=== PATIENT | female | born 1940 | race Caucasian/White ===

== ENCOUNTER 2021-10-25 14:03 | Outpatient (REF) | payer OTHER, SELFPAY ==
--- NOTE | ~2021-10-25 | XR_ITS ---
EXAMINATION: XR LUMBOSACRAL SPINE CLINICAL INFORMATION: Low back pain with right-sided sciatica COMPARISON: Lumbar spine x-rays 07/23/2012 TECHNIQUE: Three views of the lumbosacral spine. FINDINGS: 5 nonrib-bearing lumbar vertebral bodies are visualized. Alignment is within normal limits with only minimal retrolisthesis noted of L1 on L2 and L2 on L3. Lumbar vertebral body heights are maintained. Moderate to severely decreased L5/S1 disc space height. Mild degenerative changes of the posterior elements of the lower lumbar spine. XR/XR lumbar spine 2-3V IMPRESSION: Mild to moderate degenerative changes of the lumbar spine.
== END 2021-10-25 14:04 | disposition home or self-care (01) ==
LOC: HO.XRAY 14:03
PROVIDERS: PCP Internal Medicine; Visit Provider Chiropractor
DX: M54.41 Lumbago with sciatica, right side (principal)
CPT/HCPCS: 72100

== ENCOUNTER 2023-01-24 10:21 | Outpatient (REF) | payer OTHER, SELFPAY ==
--- NOTE | ~2023-01-24 | XR_ITS ---
EXAMINATION: XR HAND, RIGHT CLINICAL INFORMATION: Pain. COMPARISON: None available. TECHNIQUE: PA, lateral, and oblique views of the right hand. FINDINGS: There is mild bony demineralization. There are mild marginal erosions of the second, third and fifth distal interphalangeal joints. There is irregularity of the ulnar styloid. No fracture or dislocation is seen. The proximal and distal carpal rows are intact. There is no unusual degenerative change of the first metacarpophalangeal joint. There is no focal soft tissue swelling, gas or foreign body. XR/XR hand RT min 3V IMPRESSION: Mild marginal erosions of the second, third and fifth distal interphalangeal joints, raising the possibility of early erosive osteoarthritis or psoriasis. Rheumatoid arthritis is considered less likely.
== END 2023-01-24 10:22 | disposition home or self-care (01) ==
LOC: HO.HOSX 10:21
PROVIDERS: Visit Provider Physician Assistant
DX: S63.591A Other specified sprain of right wrist, initial encounter (principal)
CPT/HCPCS: 73130

== ENCOUNTER 2023-09-03 06:14 | Day surgery (SDC) | payer MEDICARE, SELFPAY ==
[2023-08-28 14:23] VITALS: BMI 20.2
--- NOTE | 2023-08-31 07:49 | MHC.SHP ---
Pre-Procedural Eval Section A Date of Service: 08/31/23 The patient is an INPATIENT: No Changes since office visit: No Cold of Flu in the past 2 weeks, No New Medical Problems, No Changes in Medication and No Patient answered all questions The History & Physical has been completed within 30 days and I have reviewed it.: Yes Section B Chief Complaint: Age-related nuclear cataract, right eye Allergies: Allergies Allergy/AdvReac Type Severity Reaction Status Date / Time amoxicillin Allergy Severe Gastrointestinal Verified 08/28/23 14:23 Upset sulfamethoxazole Allergy Unknown Unknown Verified 08/28/23 14:23 [From Bactrim] trimethoprim [From Bactrim] Allergy Unknown Unknown Verified 08/28/23 14:23 Plan Diagnosis/Plan: Unchanged I have reviewed the history and physical and performed a pertinent physical examination on my patient. No changes have occurred unless specified. Time Spent With Patient Time: Total time managing care of this patient today ____ minutes.
[2023-09-03] MEDS: Tetracaine HCl/PF 0.5% Oph Sol 4 ML DROPS 1 DROP EYE-RIGHT (06:28)
[2023-09-03] MEDS: Cyclopentolate 1 % Ophth Sol 2 ML DRPBTL 1 DROP EYE-RIGHT ×3 (06:28→06:37)
[2023-09-03] MEDS: Tropicamide 1 % Ophth Sol 3 ML BTL 1 DROP EYE-RIGHT ×3 (06:28→06:37)
[2023-09-03] MEDS: Ketorolac Tromethamine 0.5% Op 5 ML DROPS 1 DROP EYE-RIGHT ×3 (06:29→06:37)
[2023-09-03] MEDS: Phenylephrine HCL 2.5% Oph SoL 2 ML BOTTLE 1 DROP EYE-RIGHT ×3 (06:29→06:37)
[2023-09-03 06:40] VITALS: BP 176/62; PULSE 63; RESP 18; TEMP 36.7; O2SAT 100
[2023-09-03] MEDS: Lactated Ringers 500 ML 50 ML IV (06:51)
--- NOTE | 2023-09-03 07:21 | HO.ANESPROP2 ---
[facility] Active Problems Active Problems: All Active Problems (Updated 08/30/23 @ 09:03 by Jaja Matos RN) TFCC (triangular fibrocartilage complex) tear (Acute) Past Medical History Medical History Sciatic pain Hypothyroid IBS (irritable bowel syndrome) GERD (gastroesophageal reflux disease) Hiatal hernia Cervical spondylosis HTN (hypertension) Anxiety Anogenital lichen sclerosus Surgical History Surgical History History of esophagogastroduodenoscopy (EGD) Hx of colonoscopy History of Problems with Anesthesia: No Social History Social History Patient Tobacco Use Status: Never used Tobacco Are you DNR?: No Advance Directives: No Advance Directives Information Provided: Yes Nutrition Risks: No Nutritional Risk Current occupational status: unemployed Current occupation: right handed Meds Allergies Allergy/AdvReac Type Severity Reaction Status Date / Time amoxicillin Allergy Severe Gastrointestinal Verified 09/03/23 06:44 Upset sulfamethoxazole Allergy Unknown Unknown Verified 09/03/23 06:44 [From Bactrim] trimethoprim [From Bactrim] Allergy Unknown Unknown Verified 09/03/23 06:44 Active Medications: Current Medications Lactated Ringer's (Lr) 500 mls @ 50 mls/hr IV .Q10H ON LICENSE OF [facility] Stop: 09/03/23 16:59 Last Admin: 09/03/23 06:51 Dose: 50 mls/hr Lactated Ringer's (Lr) 500 mls @ 50 mls/hr IVCONT .Q10H ON LICENSE OF [facility] Povidone Iodine (Povidone Iodine 5 % Ophth Soln 30 Ml Bottle) 1 appl EYE-RIGHT PREOP PRN PRN Reason: Pre-Op Surgical Implant Prophy Home Medications Medication Instructions Recorded Confirmed Last Taken Type citalopram 40 mg tablet 40 mg PO DAILY 01/24/23 08/28/23 Unknown History ascorbic acid (vitamin C) 1,000 mg 1,000 mg PO DAILY 08/28/23 08/28/23 Unknown History tablet (Vitamin C) cholecalciferol (vitamin D3) 50 50 mcg PO DAILY 08/28/23 08/28/23 Unknown History mcg (2,000 unit) capsule (Vitamin D3) folic acid 1 mg tablet 1 mg PO DAILY 08/28/23 08/28/23 Unknown History Exam Exam Date and Time: September 03, 2023 0721 Height,Weight and Vital Signs: Height 5 ft 0.24 in Weight 47.4 kg Last Vital Signs Temp 98.0 F 09/03/23 06:40 Pulse 63 09/03/23 06:40 Resp 18 09/03/23 06:40 BP 176/62 H 09/03/23 06:40 Pulse Ox 100 09/03/23 06:40 O2 Del Method Room Air 09/03/23 06:40 Airway Mallampati Class: II TM Dist: >3cm Neck ROM: Full Loose/Missing/Broken Teeth: No Heart: RRR Lungs: CTA Assessment and Plan Assessment Anesthesia Assessment: Anesthesia Plan Discussed and Chart Reviewed Final Anesthetic Review History of Problems with Anesthesia: No NPO: Yes ASA Class: II Final Preanesthetic Review: Meds/Allgs Chart Reviewed, Consent Obtained/Reviewed and Anes Risks/Benef Reviewed Patient Risk: Low Procedure Risk: Low Anesthetic Plan Anesthetic Plan: MAC: Disposition: Standard PACU
--- NOTE | 2023-09-03 07:56 | HO.PNOPHT ---
Ophthalmology Procedure Procedure Date of Service: 09/03/23 Ophthalmology Viscoelastic: Healon Duet Dual Pack Pro Ophthalmology Lenses: TECNIS [id number] (21.5) Procedure Notes: PREOPERATIVE DIAGNOSIS: Decreased visual acuity right eye secondary to cataract POSTOPERATIVE DIAGNOSIS: Same PROCEDURE: Right cataract extraction with intraocular lens insertion SURGEON: Greg Lr M.D. ANESTHESIA: Topical/MAC ESTIMATED BLOOD LOSS: None COMPLICATIONS: None After obtaining informed consent, the patient was brought to the operating room suite and placed in the supine position. After adequate sedation per anesthesia, topical drops of Tetracaine were given to the right eye. The eye was then prepped and draped in the usual sterile fashion. The operating room microscope was then positioned over the operative eye and a lid speculum placed. A paracentesis was created. Viscoelastic was then instilled into the anterior chamber. A three plane incision was then created temporally, utilizing a 2.85 mm keratome. Capsulotomy forceps were then utilized to create a circular tear capsulotomy. Hydrodissection and hydrodelineation were carried out until adequate mobilization of the nucleus occurred. Phacoemulsification was then utilized to remove the dense central nucleus followed by removal of the cortical material utilizing the automated aspiration irrigation unit. Viscoelastic was instilled into the posterior capsular bag followed by placement of a posterior chamber intraocular lens without difficulty. The residual Viscoelastic was then removed utilizing the automated IA machine. The wound was checked and found to be watertight. The patient tolerated the procedure well and the lid speculum was removed. Intracameral injection of Vigamox 0.1 mL followed by a subtenon injection of Kenalog-40 0.2 mL were administered. The patient will be seen in the a.m.
[2023-09-03 08:20] VITALS: BP 161/52; PULSE 55; RESP 18; TEMP 36.7; O2SAT 97
== END 2023-09-03 08:31 | disposition home or self-care (01) ==
PROVIDERS: PCP Internal Medicine; Visit Provider Ophthalmology
PROC: (CPT 66985; principal; 2023-09-03 08:00)
DX: H25.11 Age-related nuclear cataract, right eye (principal); H54.7 Unspecified visual loss; H49.00 Third [oculomotor] nerve palsy, unspecified eye; D23.112 Other benign neoplasm of skin of right lower eyelid, including canthus; H04.121 Dry eye syndrome of right lacrimal gland; H20.011 Primary iridocyclitis, right eye; H50.52 Exophoria; I10 Essential (primary) hypertension; J30.9 Allergic rhinitis, unspecified; F41.9 Anxiety disorder, unspecified; Z79.899 Other long term (current) drug therapy; Z88.1 Allergy status to other antibiotic agents
CPT/HCPCS: 66984; J1920; J3010; J3301; V2632

== ENCOUNTER 2023-12-03 10:58 | Outpatient (REF) | payer MEDICARE, SELFPAY ==
[2023-12-03 12:00] VITALS: BP 195/78; PULSE 69; RESP 16; TEMP 36.9; O2SAT 100
[2023-12-03 13:47] VITALS: BMI 21.5
== END 2023-12-03 10:59 | disposition home or self-care (01) ==
LOC: HO.MS 10:58
PROVIDERS: PCP Internal Medicine; Visit Provider Ophthalmology
DX: L98.9 Disorder of the skin and subcutaneous tissue, unspecified (principal); Z53.9 Procedure and treatment not carried out, unspecified reason

== ENCOUNTER 2023-12-17 10:28 | Outpatient (REF) | payer MEDICARE, SELFPAY ==
[2023-12-17 14:10] VITALS: BP 196/95; PULSE 65; RESP 18; TEMP 36.4; O2SAT 100; BMI 20.3
== END 2023-12-17 10:29 | disposition home or self-care (01) ==
LOC: HO.MS 10:28
PROVIDERS: PCP Internal Medicine; Visit Provider Ophthalmology
PROC: (CPT 67840; principal; 2023-12-17 13:50)
DX: D23.112 Other benign neoplasm of skin of right lower eyelid, including canthus (principal)
CPT/HCPCS: 67840; 88304; 88305

== ENCOUNTER 2024-04-30 11:00 | Day surgery (SDC) | payer MEDICARE, SELFPAY ==
[2024-04-28 09:44] VITALS: BMI 19.9
--- NOTE | 2024-04-29 10:14 | HO.ANESPROP2 ---
Documented by User: Heather Owusu NP 04/29/24 10:16 HPI - Anesthesia Eval Consult details Narrative: 83yo F for Bilateral Lateral Rectus Eye Muscle Recession Medically optimized per [facility] Active Problems Active Problems: All Active Problems TFCC (triangular fibrocartilage complex) tear (Acute) Past Medical History Medical History Sciatic pain Hypothyroid IBS (irritable bowel syndrome) GERD (gastroesophageal reflux disease) Hiatal hernia Cervical spondylosis HTN (hypertension) Anxiety Anogenital lichen sclerosus Surgical History Surgical History Hx of cataract surgery History of esophagogastroduodenoscopy (EGD) Hx of colonoscopy History of Problems with Anesthesia: No Social History Social History Patient Tobacco Use Status: Never used Tobacco Use of substances other than those prescribed or required for medical reasons: No Are you DNR?: No Advance Directives: No Advance Directives Information Provided: Yes Current occupational status: unemployed Current occupation: right handed Meds Allergies Allergy/AdvReac Type Severity Reaction Status Date / Time No Known Allergies Allergy Verified 04/30/24 13:33 Home Medications ?Medication ?Instructions ?Recorded ?Confirmed ?Last Taken ?Type citalopram 40 mg tablet 40 mg PO DAILY 01/24/23 04/30/24 Unknown History ascorbic acid (vitamin C) 1,000 mg 1,000 mg PO DAILY 08/28/23 04/30/24 Unknown History tablet (Vitamin C) cholecalciferol (vitamin D3) 50 50 mcg PO DAILY 08/28/23 04/30/24 Unknown History mcg (2,000 unit) capsule (Vitamin D3) folic acid 1 mg tablet 1 mg PO DAILY 08/28/23 04/30/24 Unknown History amlodipine 5 mg tablet 5 mg PO BEDTIME 04/30/24 04/30/24 Unknown History jmtcgvyc-kmrb-dxqu 8 mg-folic 400 1 tab PO DAILY 04/30/24 04/30/24 Unknown History mcg-K 50 mcg-lutein 300 mcg tablet (Centrum Silver Women) Exam Height,Weight and Vital Signs: Height 5 ft 0.24 in Weight 46.5 kg Assessment and Plan Assessment Anesthesia Assessment: Chart Reviewed Final Anesthetic Review History of Problems with Anesthesia: No Documented by User: Talia Esteban MD 04/30/24 14:30 [facility] Past Medical History Medical History Sciatic pain Hypothyroid IBS (irritable bowel syndrome) GERD (gastroesophageal reflux disease) Hiatal hernia Cervical spondylosis HTN (hypertension) Anxiety Anogenital lichen sclerosus Family History Family history of problems with anesthesia: No Surgical History Surgical History Hx of cataract surgery History of esophagogastroduodenoscopy (EGD) Hx of colonoscopy Social History Social History Patient Tobacco Use Status: Never used Tobacco Use of substances other than those prescribed or required for medical reasons: No Are you DNR?: No Advance Directives: No Advance Directives Information Provided: Yes Current occupational status: unemployed Current occupation: right handed Meds Allergies Allergy/AdvReac Type Severity Reaction Status Date / Time No Known Allergies Allergy Verified 04/30/24 13:33 Home Medications ?Medication ?Instructions ?Recorded ?Confirmed ?Last Taken ?Type citalopram 40 mg tablet 40 mg PO DAILY 01/24/23 04/30/24 Unknown History ascorbic acid (vitamin C) 1,000 mg 1,000 mg PO DAILY 08/28/23 04/30/24 Unknown History tablet (Vitamin C) cholecalciferol (vitamin D3) 50 50 mcg PO DAILY 08/28/23 04/30/24 Unknown History mcg (2,000 unit) capsule (Vitamin D3) folic acid 1 mg tablet 1 mg PO DAILY 08/28/23 04/30/24 Unknown History amlodipine 5 mg tablet 5 mg PO BEDTIME 04/30/24 04/30/24 Unknown History sbtxwtic-ajni-fegi 8 mg-folic 400 1 tab PO DAILY 04/30/24 04/30/24 Unknown History mcg-K 50 mcg-lutein 300 mcg tablet (Centrum Silver Women) Exam Airway Mallampati Class: II TM Dist: >3cm Neck ROM: Full Heart: rrr Lungs: cta Assessment and Plan Assessment Anesthesia Assessment: Anesthesia Plan Discussed Final Anesthetic Review Family History of Problems with Anesthesia: No NPO: Yes ASA Class: III Final Preanesthetic Review: No Changes in Pt Med Stat, Meds/Allgs Chart Reviewed, Consent Obtained/Reviewed and Anes Risks/Benef Reviewed Patient Risk: Intermediate Procedure Risk: Low Anesthetic Plan Anesthetic Plan: GA (pt complains of chest heaviness and disorienentation, blood sugar and EKG ORDERED. rythm strip normal.) Disposition: Standard PACU
[2024-04-30] VITALS (7 sets, daily range): BP systolic 132–179; BP diastolic 50–79; PULSE 77–97; RESP 16–17; TEMP 36.7–36.9; O2SAT 97–100; BMI 19.4
--- OUTSIDE RECORDS SUMMARY | 2024-04-30 11:02 | XMS_ITS | Continuity of Care Document ---
Author Organization [facility] [place], [facility] Address [address] [place] [address]- Care Team Providers Care Cafeteria Counter Attendant Name Role Phone Lobo Dorsey MD Primary Care Physician Encounter [facility] [place] Date(s): 09/29/20 - 10/06/20 [facility] [place] Adult [address] [place] [address]- Encounter Diagnosis Esophageal reflux(Discharge Diagnosis) - 09/29/20 Attending Physician: Lobo Dorsey MD Allergies, Adverse Reactions, Alerts Substance Reaction Severity Status amoxicillin SEVERE GI UPSET Active Bactrim Active Immunizations Given and Recorded Vaccine Date Status Refusal Reason Influenza Virus Vaccine (oldterm) 06/30/20 Recorde d Influenza Virus Vaccine (oldterm) 07/30/19 Recorde d Influenza Virus Vaccine (oldterm) 1 08/08/06 Given Zoster Vaccine Live 09/11/19 Recorded Zoster Vaccine Live 05/26/09 Given zoster vaccine, inactivated 07/23/19 Recorded zoster vaccine, inactivated 07/22/19 Recorded influenza virus vaccine, inactivated 08/14/18 Give n influenza virus vaccine, inactivated 08/01/17 Give n influenza virus vaccine, inactivated 08/11/16 Give n influenza virus vaccine, inactivated 2, 3 07/26/15 Recorded influenza virus vaccine, inactivated 4 08/22/14 Re corded influenza virus vaccine, inactivated 08/19/13 Give n pneumococcal 13-valent vaccine 05/18/15 Given tetanus/diphtheria/pertussis, acel(Tdap) 5 05/20/13 Given Fluzone (oldterm) 07/31/12 Given FluLaval (oldterm) 08/29/11 Given FluLaval (oldterm) 6 08/03/10 Given Tetanus Toxoid 12/29/09 Given influ virus vac, H1N1, inactive(oldterm) 7 11/30/09 Given Influenza Inactive (IM) (oldterm) 09/02/08 Given Influenza Inactive (IM) (oldterm) 08/08/07 Given Pneumococcal Vaccine (oldterm) 10/22/04 Given Tetanus Toxoid Vaccine (oldterm) 09/21/00 Given 1Admin Note: GIVEN IN [facility]IC [facility] 2Location History: [facility] 3Result Comment: [07/28/2015] HIGH DOSE 4Location History: [address] [place] 5Result Comment: [05/20/2013] orderred by Dhara nieto NP 6Admin Note: [employer] [facility] SALTYALEYDA 7Admin Note: per pt rcvd elsewhere Medications Carafate 1 gm oral tablet 1 Gm, 1, tablet, By Mouth, 4 times a day, # 120 tablet, Refills 11, Tot. Refills 11, Maintenance, 09/30/20 9:28:00 EST, Route to Pharmacy Electronically, [facility] #[id number], Partial fill upon patient request if the prescription is for a sched... Start Date: 09/30/20 Status: Ordered cetirizine 10 mg oral tablet 1 tablet = 10 mg, By Mouth, Daily, # 30 tablet, 0 Refills, Maintenance, 02/16/20 14:17:00 EDT, Tablet Start Date: 02/16/20 Status: Ordered citalopram 20 mg oral tablet 40 mg, 2, tablet, By Mouth, Daily, # 180 tablet, Refills 0, Tot. Refills 0, Soft Stop, 08/09/20 7:21:00 EDT, Route to Pharmacy Electronically, [facility] #36, 153.5, cm, 02/16/20 13:58:00 EDT, Height Start Date: 08/09/20 Stop Date: 11/07/20 Status: Ordered Folic Acid Daily, 0 Refills, Maintenance Start Date: 05/20/13 Status: Ordered ipratropium nasal 21 mcg/inh spray 2 sprays, Nares, Both, 3 times a day, # 30 mL, 11 Refills, Maintenance, 09/29/20 16:46:00 EST, [place], [facility] #[id number], Partial fill upon patient request if the prescription is for a schedule II opioid drug., 2 sprays Nares, Both 3 times a... Start Date: 09/29/20 Status: Ordered Singulair 5 mg oral tablet, chewable 5 mg, 1, tablet, Chew, Daily in PM, # 90 tablet, Refills 1, Tot. Refills 1, Maintenance, 08/26/20 14:54:00 EST, Print Requisition Start Date: 08/26/20 Status: Ordered Vitamin B-6 Tablet Daily, Maintenance, 05/20/13 8:34:54 Start Date: 05/20/13 Status: Ordered Vitamin B12 1000 mcg oral tablet 1 tablet = 1,000 mcg, By Mouth, Daily, # 30 tablet, 0 Refills, Maintenance, Tablet Start Date: 05/20/13 Status: Ordered Vitamin C 1000 mg oral tablet 1 tablet = 1,000 mg, By Mouth, Daily, # 30 tablet, 0 Refills, Maintenance, Tablet Start Date: 05/20/13 Status: Ordered Vitamin D3 2000 intl units oral tablet 1 tablet = 2,000 International_Units, By Mouth, Daily, 0 Refills, Maintenance, 05/18/15 9:34:02 Start Date: 05/18/15 Status: Ordered Problem List Condition Effective Dates Status Health Status Inform ant Allergic rhinitis(Confirmed) Active Anogenital lichen sclerosus(Confirmed) Active Anxiety(Confirmed) Active Atrophic vaginitis(Confirmed) Active Atrophic vaginitis(Confirmed) Active Benign essential hypertension(Confirmed) Active Cervical spondylosis(Confirmed) Active Colonoscopy(Confirmed) 1, 2 Active Constipation(Confirmed) Active Esophagogastroduodenoscopy [ egd] with Closed Biopsy(Confirmed) 3 Active Esophageal reflux(Confirmed) Active Headache(Confirmed) Active Esophageal hiatal hernia(Confirmed) 4 Active Irritable Bowel Syndrome(Confirmed) 5 Active 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 Gauthier Diagnosis Diagnosis Type Effective Dates Health Status Clinical Service Informant Esophageal reflux Discharge Diagnosis 09/29/20 Vital Signs Most recent to oldest [Reference Range]: 1 Height 153.5 cm (09/29/20 3:00 PM) Mode of Delivery (Oxygen) Room air (09/29/20 3:00 PM) Social History Social History Type Response Smoking Status Never smoker entered on: 11/18/13 Sex
--- OUTSIDE RECORDS SUMMARY | 2024-04-30 11:02 | XMS_ITS | Continuity of Care Document ---
Author Organization [facility] [place] [facility] Address [address] [place] [address]- Care Team Providers Care Senior Tax Manager Name Role Phone Lobo Dorsey MD Primary Care Physician Encounter [facility] [place] Date(s): 02/25/24 - 04/09/24 [facility] Adult [address] [place] [address]- Attending Physician: Lobo Dorsey MD Allergies, Adverse Reactions, Alerts Substance Reaction Severity Status amoxicillin SEVERE GI UPSET Active Bactrim Active Immunizations Given and Recorded Vaccine Date Status Refusal Reason influenza virus vaccine, inactivated 07/01/23 Manohar rded influenza virus vaccine, inactivated 07/28/22 Give n influenza virus vaccine, inactivated 08/04/21 Give n influenza virus vaccine, inactivated 06/20/20 Manohar rded influenza virus vaccine, inactivated 08/14/18 Give n influenza virus vaccine, inactivated 08/01/17 Give n influenza virus vaccine, inactivated 08/11/16 Give n influenza virus vaccine, inactivated 1, 2 07/26/15 Recorded influenza virus vaccine, inactivated 3 08/22/14 Re corded influenza virus vaccine, inactivated 08/13/14 Manohar rded influenza virus vaccine, inactivated 08/19/13 Give n influenza virus vaccine, inactivated 08/11/13 Manohar rded influenza virus vaccine, inactivated 08/02/10 Manohar rded tetanus-diphtheria toxoids (Td) 01/26/23 Given tetanus-diphtheria toxoids (Td) 12/29/09 Recorded pneumococcal 20-valent conjugate vaccine 01/26/23 Given SARS-CoV-2 (COVID-19) mRNA BNT-162b2 vac 08/17/21 Recorded SARS-CoV-2 (COVID-19) mRNA BNT-162b2 vac 12/13/20 Recorded SARS-CoV-2 (COVID-19) mRNA BNT-162b2 vac 11/22/20 Recorded Influenza Virus Vaccine (oldterm) 06/30/20 Recorde d Influenza Virus Vaccine (oldterm) 07/30/19 Recorde d Influenza Virus Vaccine (oldterm) 4 08/08/06 Given Zoster Vaccine Live 09/11/19 Recorded Zoster Vaccine Live 05/26/09 Given zoster vaccine, inactivated 07/23/19 Recorded zoster vaccine, inactivated 07/22/19 Recorded zoster vaccine, inactivated 07/11/19 Recorded pneumococcal 13-valent vaccine 05/18/15 Given tetanus/diphtheria/pertussis, acel(Tdap) 5 05/20/13 Given Fluzone (oldterm) 07/31/12 Given FluLaval (oldterm) 08/29/11 Given FluLaval (oldterm) 6 08/03/10 Given Tetanus Toxoid 12/29/09 Given influ virus vac, H1N1, inactive(oldterm) 7 11/30/09 Given Influenza Inactive (IM) (oldterm) 09/02/08 Given Influenza Inactive (IM) (oldterm) 08/08/07 Given Pneumococcal Vaccine (oldterm) 10/22/04 Given Tetanus Toxoid Vaccine (oldterm) 09/21/00 Given 1Location History: [facility] 2Result Comment: [07/28/2015] HIGH DOSE 3Location History: [address] [place] 4Admin Note: GIVEN IN CLINIC [facility]AM 5Result Comment: [05/20/2013] orderred by Dhara nieto NP 6Admin Note: [employer] [facility] MICHELLE 7Admin Note: per pt rcvd elsewhere Medications amLODIPine 5 mg oral tablet 1 tablet = 5 mg, By Mouth, Daily, # 90 tablet, 0 Refills, Maintenance, 02/29/24 11:28:00 EDT, Tablet, [facility] #[facility], Partial fill upon patient request if the prescription is for a schedule II opioid drug., 153, cm, 02/25/24 14:21:00 EDT, He... Start Date: 02/29/24 Status: Ordered benazepril 10 mg oral tablet 1 tablet = 10 mg, By Mouth, Daily, # 90 tablet, 0 Refills, Maintenance, 02/29/24 11:29:00 EDT, Tablet, [facility] #[facility], Partial fill upon patient request if the prescription is for a schedule II opioid drug., 153, cm, 02/25/24 14:21:00 EDT, H... Start Date: 02/29/24 Status: Ordered citalopram 40 mg oral tablet 1 tablet, By Mouth, Daily, # 90 tablet, 3 Refills, Maintenance, 08/06/23 13:14:00 EDT, [facility] #[facility], 153, cm, 08/06/23 13:00:00 EDT, Height Start Date: 08/06/23 Status: Ordered Folic Acid Daily, 0 Refills, Maintenance Start Date: 05/20/13 Status: Ordered Vitamin C 1000 mg oral tablet 1 tablet = 1,000 mg, By Mouth, Daily, # 30 tablet, 0 Refills, Maintenance, Tablet Start Date: 05/20/13 Status: Ordered Vitamin D3 2000 intl units oral tablet 1 tablet = 2,000 International_Units, By Mouth, Daily, 0 Refills, Maintenance, 05/18/15 9:34:02 Start Date: 05/18/15 Status: Ordered Problem List Condition Confirmation Course Effective Dates Status Health Status Informant Allergic rhinitis Confirmed Active Anogenital lichen sclerosus Confirmed Active Anxiety Confirmed Active Atrophic vaginitis Confirmed Active Benign essential hypertension Confirmed Active Cervical spondylosis Confirmed Active Chest pain Confirmed Active Colonoscopy 1, 2 Confirmed Active Constipation Confirmed Active Diplopia Confirmed Active Dizziness Confirmed Active Esophagogastroduodenoscopy [egd] with Closed Biopsy 3 Confirmed Active Esophageal reflux Confirmed Active Headache Confirmed Active Esophageal hiatal hernia 4 Confirmed Active MCI (mild cognitive impairment) Confirmed Active Irritable Bowel Syndrome 5 Confirmed Active Lichen sclerosus et atrophicus of the vulva Confirmed Active Schatzki's ring 6 Confirmed Active Ptosis, right Confirmed Active Recurrent major depressive episodes Confirmed Active Rhinitis Confirmed Active Right sided sciatica Confirmed Active Sensorineural hearing loss o f both ears 7 Confirmed Active Subclinical hypothyroidism Confirmed Active 1colo 2011 nl, no repeat needed with age 2colo 1999, repeat 2009 3egd 1999 negative barretts 4EGD 2014 5constipation 2017 7per hearing test done with Dr. Gauthier Social History Social History Type Response Smoking Status Never (less than 100 in lifetime) entered on: 08/28/23 Sex Patient Care team information Care Team Personnel Name: Lobo Dorsey MD Position: S Physician - Primary Care Member Role: PCP Address: Address: [address] [facility] [place] [address]- Care Team Related Persons Name: JORGE BRISENO Address: home [address] [facility] [place] [id number]
--- OUTSIDE RECORDS SUMMARY | 2024-04-30 11:02 | XMS_ITS | Continuity of Care Document ---
Author Organization [facility] Silver[facility] lt Address [address] [place] [address]- Care Team Providers Care Boat Washer Name Role Phone Lobo Dorsey MD Primary Care Physician [phone] [place] [facility] [place](s): 08/02/21 - 09/07/21 [facility] Adult [address] [place] [address]- Attending Physician: Lobo Dorsey MD Allergies, Adverse Reactions, Alerts Substance Reaction Severity Status amoxicillin SEVERE GI UPSET Active Bactrim Active Immunizations Given and Recorded Vaccine Date Status Refusal Reason influenza virus vaccine, inactivated 08/04/21 Give n influenza virus vaccine, inactivated 08/14/18 Give n influenza virus vaccine, inactivated 08/01/17 Give n influenza virus vaccine, inactivated 08/11/16 Give n influenza virus vaccine, inactivated 1, 2 07/26/15 Recorded influenza virus vaccine, inactivated 3 08/22/14 Re corded influenza virus vaccine, inactivated 08/19/13 Give n SARS-CoV-2 (COVID-19) mRNA BNT-162b2 vac 12/13/20 Recorded SARS-CoV-2 (COVID-19) mRNA BNT-162b2 vac 11/22/20 Recorded Influenza Virus Vaccine (oldterm) 06/30/20 Recorde d Influenza Virus Vaccine (oldterm) 07/30/19 Recorde d Influenza Virus Vaccine (oldterm) 4 08/08/06 Given Zoster Vaccine Live 09/11/19 Recorded Zoster Vaccine Live 05/26/09 Given zoster vaccine, inactivated 07/23/19 Recorded zoster vaccine, inactivated 07/22/19 Recorded pneumococcal 13-valent vaccine 05/18/15 Given tetanus/diphtheria/pertussis, [...] Comment: [07/28/2015] HIGH DOSE 3Location History: [address] [place] 4Admin Note: GIVEN IN CLINIC SHAM 5Result Comment: [05/20/2013] orderred by Dhara nieto NP 6Admin Note: [employer] [facility] MICHELLE 7Admin Note: per pt rcvd elsewhere Medications Carafate 1 gm oral tablet 1 Gm, 1, tablet, By Mouth, 4 times a day, # 120 tablet, Refills 11, Tot. Refills 11, Maintenance, 09/30/20 9:28:00 EST, Route to Pharmacy Electronically, [facility] #[id number], Partial fill upon patient request if the prescription is for a sched... Start Date: 09/30/20 Status: Ordered citalopram 40 mg oral tablet 1 tablet, By Mouth, Daily, # 90 tablet, 1 Refills, [facility] #[id number], 153.5, cm, 04/14/2114:03:00 EDT, Height Start Date: 07/08/21 Status: Ordered Folic Acid Daily, 0 Refills, Maintenance Start Date: 05/20/13 Status: Ordered LORazepam 0.5 mg oral tablet 0.5 tablet = 0.25 mg, By Mouth, 3 times a day, PRN for anxiety, # 30 tablet, 0 Refills, Maintenance, 08/04/21 12:11:00 EDT, Tablet, [facility] #[id number], Partial fill upon patient request if the prescription is for a schedule II opioid drug., 1... Start Date: 08/04/21 Status: Ordered Vitamin B-6 Tablet Daily, Maintenance, [...] 05/18/15 9:34:02 Start Date: 05/18/15 Status: Ordered ZyrTEC 10 mg oral tablet 1 tablet = 10 mg, By Mouth, Daily, # 30 tablet, 5 Refills, Maintenance, 04/14/21 14:31:00 EDT, [facility], [id number], Partial fill upon patient request if the prescription is for a schedule II opioid drug., 153.5, cm, 04/14/21 14:03:00 E... Start Date: 04/14/21 Status: Ordered Problem List Condition Effective Dates [...] the vulva(Confirmed) Active Schatzki's ring(Confirmed) 6 Active Ptosis, right(Confirmed) Active Depression, major, recurrent , moderate(Confirmed) Active Rhinitis(Confirmed) Active 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 Gauthier Social History Social History Type Response Smoking Status Never smoker entered on: 11/18/13 Sex
--- OUTSIDE RECORDS SUMMARY | 2024-04-30 11:02 | XMS_ITS | Continuity of Care Document ---
Author Organization [facility] Kiel [facility] lt Address [address] [place] [address]- Care Team Providers Care Day Care Worker Name Role Phone Lobo Dorsey MD Primary Care Physician [phone] Encounter [facility] Date(s): 08/06/23 - 08/13/23 [facility] Adult [address] [place] [address]- Encounter Diagnosis Anxiety(Discharge Diagnosis) - 08/06/23 Attending Physician: Lobo Dorsey MD Allergies, Adverse [...] HIGH DOSE 3Location History: [address] [place] 4Admin Note: GIVEN IN CLINIC SHAM 5Result Comment: [05/20/2013] orderred by Dhara nieto NP 6Admin Note: [facility] MICHELLE 7Admin Note: per pt rcvd elsewhere Medications aspirin 81 mg oral delayed release tablet 81 mg, 1, tablet, By Mouth, Daily, Refills 0, Maintenance, 01/26/23 11:39:00 EDT, Partial fill uponpatient request if the prescription is for a schedule II opioid drug. Start Date: 01/26/23 Status: Ordered citalopram 40 mg oral tablet 1 tablet, By Mouth, Daily, # 90 tablet, 3 Refills, Maintenance, 08/06/23 13:14:00 EDT, [facility] #[facility], 153, cm, 08/06/23 13:00:00 EDT, Height Start Date: 08/06/23 Status: Ordered Clobetasol (Eqv-Temovate) 0.05% topical cream See Instructions, apply a thin film twice daily, # 15 Gm, 0 Refills, Maintenance, 08/06/23 13:18:00EDT, [facility] #[facility], Partial fill upon patient request if the prescription is for a schedule II opioid drug., apply a thin film twice daily,... Start Date: 08/06/23 Status: Ordered Folic Acid Daily, 0 Refills, Maintenance Start Date: 05/20/13 Status: Ordered Vitamin B-6 Tablet Daily, Maintenance, 05/20/13 8:34:54 Start Date: 05/20/13 Status: Ordered Vitamin C [...] Anxiety Confirmed Active Atrophic vaginitis Confirmed Active Cervical spondylosis Confirmed Active Chest pain Confirmed Active Colonoscopy 1, 2 Confirmed Active Constipation Confirmed Active Dizziness Confirmed Active Esophagogastroduodenoscopy [egd] [...] Diagnosis Diagnosis Type Effective Dates Health Status Clini laurie Service Informant Anxiety Discharge Diagnosis 08/06/23 Vital Signs Most recent to oldest [Reference Range]: 1 Height 153 cm (08/06/23 1:00 PM) Weight 48.5 kg (08/06/23 1:00 PM) Oxygen Saturation [94-100 %] 100 % (08/06/23 1:00 PM) Pulse Rate [55-90 bpm] 70 bpm (08/06/23 1:00 PM) Body Mass Index [18.5-24.99 kg/m2] 20.72 kg/m2 (08/06/23 1:00 PM) Blood Pressure [90-138/55-84 mm Hg] 132/ 70mm Hg (08/06/23 1:00 PM) Mode of Delivery (Oxygen) Room air (08/06/23 1:00 PM) Blood pressure sites Arm, left (08/06/23 1:00 PM) Weight Obtained Via Standing scale (08/06/23 1:00 PM) Social History Social History Type Response Smoking Status Never smoker entered on: 11/18/13 Sex Patient Care team information Care Team Personnel Name: Lobo Dorsey MD Position: S Physician - Primary Care Member Role: PCP Address: Address: [address] [place] [address]- Care Team Related Persons Name: JORGE BRISENO Address: [address] [place] [address] [facility] [place] [address]
--- OUTSIDE RECORDS SUMMARY | 2024-04-30 11:02 | XMS_ITS | Continuity of Care Document ---
Author Organization [facility] Address [address] [place] [address]- Care Team Providers Care Freelance Art Director Name Role Phone Lobo Dorsey MD Primary Care Physician [facility]counter [facility] Date(s): 10/23/19 - 11/02/19 [facility] Adult [address] [place] [address]- [facility] Attending Physician: Admtr, Ar8 Allergies, Adverse Reactions, Alerts Substance Reaction Severity Status amoxicillin SEVERE GI UPSET Active Bactrim Active Immunizations Given and Recorded Vaccine Date Status Refusal Reason Zoster Vaccine Live 09/11/19 Recorded Zoster Vaccine Live 05/26/09 Given Influenza Virus Vaccine (oldterm) 07/30/19 Recorde d Influenza Virus Vaccine (oldterm) 1 08/08/06 Given zoster vaccine, inactivated 07/23/19 Recorded zoster [...] 5Result Comment: [05/20/2013] orderred by Dhara nieto DEMOLITION CRANE OPERATOR 6Admin Note: [employer] [facility] MICHELLE 7Admin Note: per pt rcvd elsewhere Medications citalopram 20 mg oral tablet See Instructions, TAKE TWO TABLETS BY MOUTH ONCE DAILY, # 180 tablet, Refills 1, Tot. Refills 1, Soft Stop, 09/15/19 14:30:31 EST, Instructions Replace Required Details, Print Requisition Start Date: 09/15/19 Status: Ordered Folic Acid Daily, 0 Refills, Maintenance Start Date: 05/20/13 Status: Ordered Pepcid 20 mg oral tablet 1 tablet = 20 mg, By Mouth, 2 times a day, # 180 tablet, 0 Refills, Maintenance, 08/14/19 12:13:14 EDT, Tablet Start Date: 08/14/19 Status: Ordered Vitamin B-6 Tablet Daily, Maintenance, [...] Effective Dates Status Health Status Inform ant Anogenital lichen sclerosus(Confirmed) Active Anxiety(Confirmed) Active Atrophic [...] 7per hearing test done with Dr. Gauthier Procedures Procedure Date Related Diagnosis Body Site Status Endoscopy 10/02/18 Completed Social History Social History Type Response Smoking Status Never smoker entered on: 11/18/13 Sex
--- OUTSIDE RECORDS SUMMARY | 2024-04-30 11:02 | XMS_ITS | Continuity of Care Document ---
Author Organization [facility] Address [address] [place] [address]- Care Team Providers Care Software Designer Name Role Phone Lobo Dorsey MD Primary Care Physician Encounter [facility] [place] Date(s): 07/28/22 - 08/04/22 [facility] Adult [address] [place] [address]- Encounter Diagnosis Allergic rhinitis(Discharge Diagnosis) - 07/28/22 Anxiety(Discharge Diagnosis) - 07/28/22 Major depression, recurrent, moderate(Discharge Diagnosis) - 07/28/22 Attending Physician: Lobo Dorsey MD Allergies, Adverse Reactions, Alerts Substance Reaction Severity Status amoxicillin SEVERE GI UPSET Active Bactrim Active Immunizations Given and Recorded Vaccine Date Status Refusal Reason influenza virus vaccine, inactivated 07/28/22 Give n [...] influenza virus vaccine, inactivated 08/02/10 Manohar rded SARS-CoV-2 (COVID-19) mRNA BNT-162b2 vac 08/17/21 Recorded SARS-CoV-2 (COVID-19) mRNA BNT-162b2 vac 12/13/20 Recorded SARS-CoV-2 (COVID-19) mRNA BNT-162b2 vac 2/1/21 Recorded Influenza Virus Vaccine (oldterm) 06/30/20 Recorde [...] 6 08/03/10 Given Tetanus Toxoid 12/29/09 Given tetanus-diphtheria toxoids (Td) 12/29/09 Recorded influ virus vac, H1N1, inactive(oldterm) 7 11/30/09 Given Influenza Inactive (IM) (oldterm) 09/02/08 Given Influenza Inactive (IM) (oldterm) 08/08/07 Given Pneumococcal Vaccine (oldterm) 10/22/04 Given Tetanus Toxoid Vaccine (oldterm) 09/21/00 Given 1Location History: [place] 2Result Comment: [07/28/2015] HIGH DOSE 3Location History: [place] 4Admin Note: GIVEN IN CLINIC SHAM 5Result Comment: [05/20/2013] orderred by Dhara nieto NP 6Admin Note: [facility] MICHELLE 7Admin Note: per pt rcvd elsewhere Medications citalopram 40 mg oral tablet 1 tablet, By Mouth, Daily, # 90 tablet, 5 Refills, 04/07/22 9:38:00 EDT, [facility], 153, cm, 01/06/22 15:29:00 EDT, Height Start Date: 04/07/22 Status: Ordered fexofenadine 180 mg oral tablet 1 tablet = 180 mg, By Mouth, Daily, # 30 tablet, 0 Refills, Maintenance, 07/28/22 13:34:00 EDT, Tablet, Partial fill upon patient request if the prescription is for a schedule II opioid drug. 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 Gauthier Diagnosis Diagnosis Type Effective Dates Health Status Cl inical Service Informant Allergic rhinitis Discharge Diagnosis 07/28/22 Anxiety Discharge Diagnosis 07/28/22 Major depression, recurrent, moderate Discharge Diagnosis 07/28/22 Vital Signs Most recent to oldest [Reference Range]: 1 Height 153 cm (07/28/22 1:13 PM) Weight 47.9 kg (07/28/22 1:13 PM) Oxygen Saturation [94-100 %] 98 % (07/28/22 1:13 PM) Pulse Rate [55-90 bpm] 71 bpm (07/28/22 1:13 PM) Body Mass Index [18.5-24.99 kg/m2] 20.46 kg/m2 (07/28/22 1:13 PM) Blood Pressure [90-138/55-84 mm Hg] 156/ 68mm Hg *H* (07/28/22 1:13 PM) Mode of Delivery (Oxygen) Room air (07/28/22 1:13 PM) Blood pressure sites Arm, left (07/28/22 1:13 PM) Weight Obtained Via Standing scale (07/28/22 1:13 PM) Social History Social History Type Response Smoking Status Never smoker entered on: 11/18/13 Sex Patient Care team information Personnel Name: Sunita GONZALES, Lobo Lozada Address: Address: [address] [place] [id number]
--- OUTSIDE RECORDS SUMMARY | 2024-04-30 11:02 | XMS_ITS | Continuity of Care Document ---
Author Organization [facility] Address [address] [place] [address]- Care Team Providers Care Cadastral Engineer Name Role Phone Lobo Dorsey MD Primary Care Physician [phone] [facility]counter [facility] Date(s): 11/17/20 - 12/17/20 [facility] Adult [address] [place] [address]- Attending Physician: Admtr, Ar8 Allergies, Adverse Reactions, [...] Comment: [07/28/2015] HIGH DOSE 4Location History: [place] [place] 5Result Comment: [05/20/2013] orderred by Dhara nieto AIRCRAFT LINE ASSEMBLER 6Admin Note: [facility] [place] 7Admin Note: per pt rcvd elsewhere Medications Carafate 1 gm oral tablet 1 Gm, 1, tablet, By Mouth, 4 times a day, # 120 tablet, Refills 11, Tot. Refills 11, Maintenance, 09/30/20 9:28:00 EST, Route to Pharmacy Electronically, [facility] #[id number], Partial fill upon patient request if the [...] Refills 0, Tot. Refills 0, Soft Stop, 11/16/20 13:35:00 EST, Route to Pharmacy Electronically, [facility] #[id number], 153.5, cm, 09/29/20 15:00:00 EST, Height Start Date: 11/16/20 Stop Date: 02/14/21 Status: Ordered citalopram 40 mg oral tablet 40 mg, 1, tablet, By Mouth, Daily, # 90 tablet, Refills 0, Tot. Refills 0, Maintenance, 11/17/20 10:54:00 EST, Route to Pharmacy Electronically, [facility] #[id number], Partial fill upon patientrequest if the prescription is for a schedule II op... Start Date: 11/17/20 Status: Ordered Folic Acid Daily, 0 Refills, Maintenance Start Date: 05/20/13 Status: Ordered ipratropium nasal 21 mcg/inh spray 2 sprays, Nares, Both, 3 times a day, # 30 mL, 11 Refills, Maintenance, 09/29/20 16:46:00 EST, [place], [facility] #[id number], Partial fill upon patient request if the [...]
--- OUTSIDE RECORDS SUMMARY | 2024-04-30 11:02 | XMS_ITS | Continuity of Care Document ---
Author Organization [facility] Address [address] [place] [address]- Care Team Providers Care Sieve Maker Name Role Phone Lobo Dorsey MD Primary Care Physician [facility] Date(s): 09/29/20 - 10/29/20 [facility] Adult [address] [place] [address]- Attending Physician: Admtr, Ar8 Allergies, Adverse Reactions, [...] 5Result Comment: [05/20/2013] orderred by Dhara nieto TRAINER 6Admin Note: [employer] [facility] MICHELLE 7Admin Note: per pt rcvd elsewhere Medications Carafate 1 gm oral tablet 1 Gm, 1, tablet, By Mouth, 4 times a day, # 120 tablet, Refills 11, Tot. Refills 11, Maintenance, 09/30/20 9:28:00 EST, Route to Pharmacy Electronically, [email or web address] #[id number], Partial fill upon patient request if the [...] mL, 11 Refills, Maintenance, 09/29/20 16:46:00 EST, [place], [email or web address] #[id number], Partial fill upon patient request if the [...]
--- OUTSIDE RECORDS SUMMARY | 2024-04-30 11:02 | XMS_ITS | Continuity of Care Document ---
Author Organization [facility] [facility] Address [address] [place] [address]- Care Team Providers Care Battery Engineer Name Role Phone Lobo Dorsey MD Primary Care Physician En[place] [facility] [place](s): 01/06/22 - 01/13/22 [facility] Adult [address] [place] [address]- Encounter Diagnosis Depression, major, recurrent, moderate(Discharge Diagnosis) - 01/06/22 Rhinitis(Discharge Diagnosis) - 01/06/22 Benign essential hypertension(Discharge Diagnosis) - 01/06/22 Attending Physician: Lobo Dorsey MD Allergies, Adverse Reactions, Alerts Substance Reaction Severity Status amoxicillin SEVERE GI UPSET Active Bactrim Active Immunizations Given and Recorded Vaccine Date Status Refusal Reason SARS-CoV-2 (COVID-19) mRNA BNT-162b2 vac 08/17/21 Recorded SARS-CoV-2 (COVID-19) mRNA BNT-162b2 vac 12/13/20 Recorded SARS-CoV-2 (COVID-19) mRNA BNT-162b2 vac 11/22/20 Recorded influenza virus vaccine, inactivated 08/04/21 Give n influenza virus vaccine, inactivated 08/14/18 Give n influenza virus vaccine, inactivated 08/01/17 Give n influenza virus vaccine, inactivated 08/11/16 Give n influenza virus vaccine, inactivated 1, 2 07/26/15 Recorded influenza virus vaccine, inactivated 3 08/22/14 Re corded influenza virus vaccine, inactivated 08/19/13 Give n Influenza Virus Vaccine (oldterm) 06/30/20 Recorde d [...] Comment: [07/28/2015] HIGH DOSE 3Location History: [place] 4Admin Note: GIVEN IN CLINIC SHAM 5Result Comment: [05/20/2013] orderred by Dhara nieto NP 6Admin Note: [email or web address] [facility] SALT[place]IL[place]ANO 7Admin Note: per pt rcvd elsewhere Medications citalopram 40 mg oral tablet 1 tablet, By Mouth, Daily, # 90 tablet, 1 Refills, [facility] #[id number], 153.5, cm, 04/14/2114:03:00 EDT, Height Start Date: 07/08/21 Status: Ordered Claritin 10 mg oral tablet 10 mg, 1, tablet, By Mouth, Daily, # 90 tablet, Refills 0, Maintenance, 01/06/22 15:22:00 EDT, Partial fill upon patient request if the prescription is for a schedule II opioid drug. Start Date: 01/06/22 Status: Ordered Folic Acid Daily, 0 Refills, Maintenance Start Date: 05/20/13 Status: Ordered Vitamin B-6 Tablet Daily, Maintenance, 05/20/13 8:34:54 Start Date: 05/20/13 Status: Ordered Vitamin B12 1000 mcg oral tablet 1 tablet = 1,000 mcg, By Mouth, Daily, # 30 tablet, 0 Refills, Maintenance, Tablet Start Date: 7/30/13 Status: Ordered Vitamin C 1000 mg oral [...] sclerosus(Confirmed) Active Anxiety(Confirmed) Active Atrophic vaginitis(Confirmed) Active Benign essential hypertension(Confirmed) Active Cervical spondylosis(Confirmed) Active Chest pain(Confirmed) Active Colonoscopy(Confirmed) 1, 2 Active Constipation(Confirmed) Active Esophagogastroduodenoscopy [ egd] with Closed Biopsy(Confirmed) 3 Active Esophageal reflux(Confirmed) Active Headache(Confirmed) Active Esophageal hiatal hernia(Confirmed) 4 Active Irritable Bowel Syndrome(Confirmed) 5 Active Lichen sclerosus et atrophic us of the vulva(Confirmed) Active Schatzki's ring(Confirmed) 6 Active Ptosis, right(Confirmed) Active Depression, major, recurrent , moderate(Confirmed) Active Rhinitis(Confirmed) Active Right sided sciatica(Confirmed) Active 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 Gauthier Diagnosis Diagnosis Type Effective Dates Health Status Clinical Service Informant Depression, major, recurrent, moderate Discharge Diagnosis 01/06/22 Rhinitis Discharge Diagnosis 01/06/22 Benign essential hypertension Discharge Diagnosis 01/06/22 Vital Signs Most recent to oldest [Reference Range]: 1 2 3 Height 153 cm (01/06/22 3:29 PM) 153 cm (01/06/22 3:13 PM) 153 cm (01/06/22 2:58 PM) Weight 48.3 kg (01/06/22 2:58 PM) Oxygen Saturation [94-100 %] 98 % (01/06/22 2:58 PM) Pulse Rate [55-90 bpm] 68 bpm (01/06/22 2:58 PM) Body Mass Index [18.5-24.99] 20.63 (01/06/22 2:58 PM) Blood Pressure [90-138/55-84 mm Hg] 135/70mm Hg (01/06/22 3:29 PM) 146/68mm Hg *H* (01/06/22 3:13 PM) 146/96mm Hg *H* (01/06/22 2:58 PM) Mode of Delivery (Oxygen) Room air (01/06/22 2:58 PM) Blood pressure sites Arm, left (01/06/22 3:13 PM) Arm, left (01/06/22 2:58 PM) Weight Obtained Via Standing scale (01/06/22 2:58 PM) Social History Social History Type Response Smoking Status Never smoker entered on: 11/18/13 Sex
--- OUTSIDE RECORDS SUMMARY | 2024-04-30 11:02 | XMS_ITS | Continuity of Care Document ---
Author Organization [facility] Silver[facility] lt Address [address] [place] [address]- Care Team Providers Care Ground Intelligence Officer Name Role Phone Lobo Dorsey MD Primary Care Physician [facility] Date[facility]s): 12/06/21 - 01/05/22 [facility] Adult [address] [place] [address]- Allergies, Adverse Reactions, Alerts Substance Reaction Severity [...] orderred by Dhara nieto NP 6Admin Note: [facility] [facility] [place]ANO 7Admin Note: per pt rcvd elsewhere Medications citalopram 40 mg oral tablet 1 tablet, By Mouth, Daily, # 90 tablet, 1 Refills, [id number], 153.5, cm, 04/14/2114:03:00 EDT, Height Start Date: [...] 5 Refills, Maintenance, 04/14/21 14:31:00 EDT, Tablet, [facility] #[id number], Partial fill upon patient request if the [...]
--- OUTSIDE RECORDS SUMMARY | 2024-04-30 11:02 | XMS_ITS | Continuity of Care Document ---
Author Organization [facility] Kiel Salvador Silverio Address [address] [place] [address]- Care Team Providers Care Bit Welder Name Role Phone Lobo Dorsey MD Primary Care Physician [facility] Date(s): 07/12/21 - 08/11/21 [facility] Adult [address] [place] [address]- Allergies, Adverse Reactions, Alerts Substance Reaction Severity [...] orderred by Dhara nieto NP 6Admin Note: [email or web address] [facility] MICHELLE 7Admin Note: per pt rcvd elsewhere Medications Carafate 1 gm oral tablet 1 Gm, 1, tablet, By Mouth, 4 times a day, # 120 tablet, Refills 11, Tot. Refills 11, Maintenance, 09/30/20 9:28:00 EST, Route to Pharmacy Electronically, [facility][id number], Partial fill upon patient request if the prescription is for a sched... Start Date: 09/30/20 Status: Ordered citalopram 40 mg oral tablet 1 tablet, By Mouth, Daily, # 90 tablet, 1 Refills, [facility] #[id number], 153.5, cm, 04/14/2114:03:00 EDT, Height Start Date: 07/08/21 Status: Ordered Folic Acid Daily, 0 Refills, Maintenance Start Date: 05/20/13 Status: Ordered LORazepam 0.5 mg oral tablet 0.5 tablet = 0.25 mg, By Mouth, 3 times a day, PRN for anxiety, # 30 tablet, 0 Refills, Maintenance, 08/04/21 12:11:00 EDT, Tablet, [facility][id number], Partial fill upon patient request if the [...] 5 Refills, Maintenance, 04/14/21 14:31:00 EDT, Tablet, [facility] #[id number], Partial fill upon patient request if the [...]
--- OUTSIDE RECORDS SUMMARY | 2024-04-30 11:02 | XMS_ITS | Continuity of Care Document ---
Author Organization [facility] Silver[facility] lt Address [address] [place] [address]- Care Team Providers Care Graduate Fellow Name Role Phone Sunita GONZALES, Lobo Lozada Primary Care Physician [place] [facility] [place]21 - 04/21/21 [facility] Adult [address] [place] [address]- Attending Physician: Jina AGUIRRE, Cynthia Carranza Referring Physician: Stuart Bush MD Allergies, Adverse Reactions, Alerts Substance Reaction Severity Status amoxicillin SEVERE GI UPSET Active Bactrim Active Immunizations Given and Recorded Vaccine Date Status Refusal Reason SARS-CoV-2 (COVID-19) mRNA BNT-162b2 vac 12/13/20 Recorded [...] orderred by Dhara nieto NP 6Admin Note: [facility] MICHELLE 7Admin Note: per pt rcvd elsewhere Medications Carafate 1 gm oral tablet 1 Gm, 1, tablet, By Mouth, 4 times a day, # 120 tablet, Refills 11, Tot. Refills 11, Maintenance, 09/30/20 9:28:00 EST, Route to Pharmacy Electronically, [facility][id number], Partial fill upon patient request if the prescription is for a sched... Start Date: 09/30/20 Status: Ordered citalopram 40 mg oral tablet 1 tablet, By Mouth, Daily, # 90 tablet, 1 Refills, Maintenance, 02/11/21 7:44:00 EDT, [facility] #[id number], 153.5, cm, 11/17/20 8:26:00 EST, Height Start Date: 02/11/21 Status: Ordered Folic Acid Daily, 0 Refills, [...] Tablet Start Date: 7/30/13 Status: Ordered Vitamin D3 2000 intl units oral tablet 1 tablet = 2,000 International_Units, By Mouth, Daily, 0 Refills, Maintenance, 05/18/15 9:34:02 Start Date: 05/18/15 Status: Ordered ZyrTEC 10 mg oral tablet 1 tablet = 10 mg, By Mouth, Daily, # 30 tablet, 5 Refills, Maintenance, 04/14/21 14:31:00 EDT, Tablet, [facility] #[id number], Partial fill upon patient request if the [...] 7per hearing test done with Dr. Gauthier Vital Signs Most recent to oldest [Reference Range]: 1 Height 153.5 cm (04/14/21 2:03 PM) Weight 48.4 kg (04/14/21 2:03 PM) Oxygen Saturation [94-100 %] 97 % (04/14/21 2:03 PM) Pulse Rate [55-90 bpm] 63 bpm (04/14/21 2:03 PM) Body Mass Index [18.5-24.99] 20.54 (04/14/21 2:03 PM) Blood Pressure [90-138/55-84 mm Hg] 132/ 78mm Hg (04/14/21 2:03 PM) Temperature [96.8-100.4 DegF] 98.4 DegF (04/14/21 2:03 PM) Blood pressure sites Arm, right (04/14/21 2:03 PM) Temperature Route Oral (04/14/21 2:03 PM) Social History Social History Type Response Smoking Status Never smoker entered on: 11/18/13 Sex
--- OUTSIDE RECORDS SUMMARY | 2024-04-30 11:03 | XMS_ITS | Continuity of Care Document ---
Author Organization [facility] Silver[facility] Address [address] [place] [address]- Care Team Providers Care Manager City Name Role Phone Lobo Dorsey MD Primary Care Physician [facility]counter [facility] Date(s): 03/10/21 - 04/09/21 [facility] Adult [address] [place] [address]- Allergies, Adverse Reactions, Alerts Substance Reaction Severity [...] Note: GIVEN IN CLINIC SHAM 2Location History: [facility] 3Result Comment: [07/28/2015] HIGH DOSE 4Location History: [address] [place] 5Result Comment: [05/20/2013] orderred by Dhara nieto DISH CARRIER 6Admin Note: [facility] MICHELLE 7Admin Note: per pt rcvd elsewhere Medications Carafate 1 gm oral tablet 1 Gm, 1, tablet, By Mouth, 4 times a day, # 120 tablet, Refills 11, Tot. Refills 11, Maintenance, 09/30/20 9:28:00 EST, Route to Pharmacy Electronically, [facility] #[id number], Partial fill upon patient request if the prescription is for a sched... Start Date: 09/30/20 Status: Ordered cetirizine 10 mg oral tablet 1 tablet = 10 mg, By Mouth, Daily, # 30 tablet, 0 Refills, Maintenance, 02/16/20 14:17:00 EDT, Tablet Start Date: 02/16/20 Status: Ordered citalopram 40 mg oral tablet 1 tablet, By Mouth, Daily, # 90 tablet, 1 Refills, Maintenance, 02/11/21 7:44:00 EDT, [facility] #[id number], 153.5, cm, 11/17/20 8:26:00 EST, Height Start Date: 02/11/21 Status: Ordered Folic Acid Daily, 0 Refills, Maintenance Start Date: 05/20/13 Status: Ordered ipratropium nasal 21 mcg/inh spray 2 sprays, Nares, Both, 3 times a day, # 30 mL, 11 Refills, Maintenance, 09/29/20 16:46:00 EST, [place], [facility] #[id number], Partial fill upon patient request if the prescription is for a schedule II opioid drug., 2 sprays Nares, Both 3 times a... Start Date: 09/29/20 Status: Ordered Singulair 5 mg oral tablet, chewable 5 mg, 1, tablet, Chew, Daily in PM, # 90 tablet, Refills 1, Tot. Refills 1, Maintenance, 01/24/21 12:41:00 EDT, Route to Pharmacy Electronically, [id number], 153.5, cm, 11/17/20 8:26:00 EST, Height Start Date: 01/24/21 Status: Ordered Vitamin B-6 Tablet Daily, Maintenance, [...]
--- OUTSIDE RECORDS SUMMARY | 2024-04-30 11:03 | XMS_ITS | Continuity of Care Document ---
Author Organization [facility] Address [address] [place] [address]- Care Team Providers Care Harness Repairer Name Role Phone Sunita GONZALES, Lobo Lozada Primary Care Physician [place] [facility] [place](s): 08/28/23 - 09/04/23 [facility] [address] [place], [place] [address] Attending Physician: Hammad Combs MD Referring Physician: Be GONZALES, Greg Funk Allergies, Adverse Reactions, Alerts Substance Reaction Severity [...] orderred by Dhara nieto NP 6Admin Note: [facility] MICHELLE 7Admin Note: per pt rcvd elsewhere [...] oldest [Reference Range]: 1 Height 153 cm (08/28/23 12:56 PM) Weight 47.4 kg (08/28/23 12:56 PM) Oxygen Saturation [94-100 %] 100 % (08/28/23 12:56 PM) Pulse Rate [55-90 bpm] 69 bpm (08/28/23 12:56 PM) Body Mass Index [18.5-24.99 kg/m2] 20.25 kg/m2 (08/28/23 12:56 PM) Blood Pressure [90-138/55-84 mm Hg] 167/ 52mm Hg *H* (08/28/23 12:56 PM) Respiratory Rate [16-30 br/min] 16 br/mi n (08/28/23 12:56 PM) Mode of Delivery (Oxygen) Room air (08/28/23 12:56 PM) Blood pressure sites Arm, left (08/28/23 12:56 PM) Dry Weight 47.4 kg (08/28/23 12:56 PM) Weight Obtained Via Standing scale (08/28/23 12:56 PM) Dry Weight Obtained Via Standing scale (08/28/23 12:56 PM) Social History Social History Type Response Smoking Status Never (less than 100 in lifetime) entered on: 08/28/23 Sex Patient Care team information Care Team Personnel Name: Lobo Dorsey MD Position: [facility] Physician - Primary Care Member Role: PCP Address: Address: [address] [place] [address]- Care Team Related Persons Name: JORGE BRISENO Address: home [address] [place] [address]
--- OUTSIDE RECORDS SUMMARY | 2024-04-30 11:03 | XMS_ITS | Continuity of Care Document ---
Author Organization [facility] Silver[facility] lt Address [address] [place] [address]- Care Team Providers Care Heading Pinner Name Role Phone Lobo Dorsey MD Primary Care Physician Encounter [facility] Date(s): 08/05/22 - 09/04/22 [facility] Adult [address] [place] [address]- Allergies, Adverse Reactions, Alerts Substance Reaction Severity [...] orderred by Dhara nieto NP 6Admin Note: [facility] MICHELLE 7Admin Note: per pt [...] Care team information Care Team Personnel Name: Sunita GONZALES, Lobo Lozada Position: [facility] Primary Care Physician Member Role: PCP Address: Address: [address] [place] [address]- Care Team Related Persons Name: BRISENOJORGE Address: home [address] [place] [address]
--- OUTSIDE RECORDS SUMMARY | 2024-04-30 11:03 | XMS_ITS | Continuity of Care Document ---
Author Organization [facility] Silver[facility] lt Address [address] [place] [address]- Care Team Providers Care Silk Screen Cutter Name Role Phone Lobo Dorsey MD Primary Care Physician Encounter [facility] [place] Date(s): 12/07/21 - 12/14/21 [facility] Adult [address] [place] [address]- Encounter Diagnosis Shortness of breath(Discharge Diagnosis) - 12/07/21 Attending Physician: Debra Chang Allergies, Adverse Reactions, Alerts Substance Reaction Severity [...] orderred by Dhara nieto NP 6Admin Note: [facility] MICHELLE 7Admin Note: per pt rcvd elsewhere Medications citalopram 40 mg oral tablet 1 tablet, By Mouth, Daily, # 90 tablet, 1 Refills, [facility] #[id number], 153.5, cm, 04/14/2114:03:00 EDT, Height Start Date: [...] 5 Refills, Maintenance, 04/14/21 14:31:00 EDT, Tablet, [facility] #[id number], Partial fill upon patient request if the [...] Dates Health Status Cl inical Service Informant Shortness of breath Discharge Diagnosis 12/07/21 Vital Signs Most recent to oldest [Reference Range]: 1 2 Height 153 cm (12/07/21 11:11 AM) 153.5 cm (12/07/21 9:06 AM) Weight 47.3 kg (12/07/21 11:11 AM) 47.3 kg (12/07/21 9:06 AM) Oxygen Saturation [94-100 %] 98 % (12/07/21 9:06 AM) Pulse Rate [55-90 bpm] 70 bpm (12/07/21 9:06 AM) Body Mass Index [18.5-24.99] 20.07 (12/07/21 9:06 AM) Blood Pressure [90-138/55-84 mm Hg] 126/ 66mm Hg (12/07/21 9:06 AM) Respiratory Rate [16-30 br/min] 16 br/mi n (12/07/21 9:06 AM) Temperature [96.8-100.4 DegF] 98.3 DegF (12/07/21 9:06 AM) Mode of Delivery (Oxygen) Room air (12/07/21 9:06 AM) Blood pressure sites Arm, right (12/07/21 9:06 AM) Temperature Route Oral (12/07/21 9:06 AM) Weight Obtained Via Standing scale (12/07/21 9:06 AM) Social History Social History Type Response Smoking Status Never smoker entered on: 11/18/13 Sex
--- OUTSIDE RECORDS SUMMARY | 2024-04-30 11:03 | XMS_ITS | Continuity of Care Document ---
Author Organization [facility] [place] Silver[facility] lt Address [address] [place] [address]- Care Team Providers Care Copying Machine Mechanic Name Role Phone Lobo Dorsey MD Primary Care Physician Encounter [facility] [place] Date(s): 08/04/21 - 08/11/21 [facility] Adult [address] [place] [address]- Encounter Diagnosis Headache(Discharge Diagnosis) - 08/04/21 Major depressive disorder(HCC)(Discharge Diagnosis) - 08/04/21 Anxiety(Discharge Diagnosis) - 08/04/21 Attending Physician: Lobo Dorsey MD Allergies, Adverse [...] orderred by Dhara nieto NP 6Admin Note: [employer] [facility] MICHELLE 7Admin Note: per pt rcvd elsewhere Medications Carafate 1 gm oral tablet 1 Gm, 1, tablet, By Mouth, 4 times a day, # 120 tablet, Refills 11, Tot. Refills 11, Maintenance, 09/30/20 9:28:00 EST, Route to Pharmacy Electronically, [facility] #[id number], Partial fill upon patient request if the prescription is for a sched... Start Date: 09/30/20 Status: Ordered citalopram 40 mg oral tablet 1 tablet, By Mouth, Daily, # 90 tablet, 1 Refills, [facility] #[id number], 153.5, cm, 04/14/2114:03:00 EDT, Height Start Date: 07/08/21 Status: Ordered Folic Acid Daily, 0 Refills, Maintenance Start Date: 05/20/13 Status: Ordered LORazepam 0.5 mg oral tablet 0.5 tablet = 0.25 mg, By Mouth, 3 times a day, PRN for anxiety, # 30 tablet, 0 Refills, Maintenance, 08/04/21 12:11:00 EDT, Tablet, [id number], Partial fill upon patient request if the [...] 5 Refills, Maintenance, 04/14/21 14:31:00 EDT, Tablet, [facility] #[id number], Partial fill upon patient request if the [...] Effective Dates Health Status Clinical Service Informant Headache Discharge Diagnosis 08/04/21 Major depressive disorder(HCC) Discharge Diagnosis 08/04/21 Anxiety Discharge Diagnosis 08/04/21 Vital Signs Most recent to oldest [Reference Range]: 1 2 Height 153.5 cm (08/04/21 11:51 AM) 153.5 cm (08/04/21 11:41 AM) Weight 50.1 kg (08/04/21 11:41 AM) Oxygen Saturation [94-100 %] 98 % (08/04/21 11:41 AM) Pulse Rate [55-90 bpm] 64 bpm (08/04/21 11:41 AM) Body Mass Index [18.5-24.99] 21.26 (08/04/21 11:41 AM) Blood Pressure [90-138/55-84 mm Hg] 174/ 69mm Hg *H* (08/04/21 11:51 AM) 166/70mm Hg *H* (08/04/21 11:41 AM) Respiratory Rate [16-30 br/min] 14 br/mi n *L* (08/04/21 11:41 AM) Mode of Delivery (Oxygen) Room air (08/04/21 11:41 AM) Blood pressure sites Arm, right (08/04/21 11:51 AM) Arm, left (08/04/21 11:41 AM) Weight Obtained Via Standing scale (08/04/21 11:41 AM) Social History Social History Type Response Smoking Status Never smoker entered on: 11/18/13 Sex
--- OUTSIDE RECORDS SUMMARY | 2024-04-30 11:03 | XMS_ITS | Continuity of Care Document ---
Author Organization [facility] [place] Silver[facility] Address [address] [place] [address]- Care Team Providers Care Steward/Stewardess Smoke Room Name Role Phone Lobo Dorsey MD Primary Care Physician [facility]counter [facility] Date(s): 12/08/21 - 01/07/22 [facility] Adult [address] [place] [address]- Allergies, Adverse Reactions, Alerts Substance Reaction Severity [...] orderred by Dhara nieto NP 6Admin Note: [facility] [place] 7Admin Note: per pt rcvd elsewhere Medications citalopram 40 mg oral tablet 1 tablet, By Mouth, Daily, # 90 tablet, 1 Refills, [facility] #[id number], 153.5, cm, 04/14/2114:03:00 EDT, Height Start Date: [...]
--- OUTSIDE RECORDS SUMMARY | 2024-04-30 11:03 | XMS_ITS | Continuity of Care Document ---
Author Organization [facility] [facility] Address [address] [place] [address]- Care Team Providers Care Radar Systems Engineer Name Role Phone Lobo Dorsey MD Primary Care Physician En[place] [facility] [place] Date(s): 01/26/23 - 02/02/23 [facility] Adult [address] [place] [address]- Attending Physician: Lobo Dorsey MD Allergies, Adverse Reactions, Alerts Substance Reaction Severity Status amoxicillin SEVERE GI UPSET Active Bactrim Active Immunizations Given and Recorded Vaccine Date Status Refusal Reason tetanus-diphtheria toxoids (Td) 01/26/23 Given tetanus-diphtheria toxoids (Td) 12/29/09 Recorded pneumococcal 20-valent conjugate vaccine 01/26/23 Given influenza virus vaccine, inactivated 07/28/22 Give n [...] orderred by Dhara nieto NP 6Admin Note: [employer] [facility] MICHELLE 7Admin Note: per pt [...] EDT, Height Start Date: 04/07/22 Status: Ordered Folic Acid Daily, 0 Refills, [...] oldest [Reference Range]: 1 Height 153 cm (01/26/23 11:01 AM) Weight 48.0 kg (01/26/23 11:01 AM) Oxygen Saturation [94-100 %] 98 % (01/26/23 11:01 AM) Pulse Rate [55-90 bpm] 65 bpm (01/26/23 11:01 AM) Body Mass Index [18.5-24.99 kg/m2] 20.5 kg/m2 (01/26/23 11:01 AM) Blood Pressure [90-138/55-84 mm Hg] 132/ 72mm Hg (01/26/23 11:01 AM) Mode of Delivery (Oxygen) Room air (01/26/23 11:01 AM) Blood pressure sites Arm, left (01/26/23 11:01 AM) Social History Social History Type Response Smoking Status Never smoker entered on: 11/18/13 Sex Note * Chelsea Lee: PERFORM, SIGN, VERIFY Event Display: Patient Education/Instruction Authored Date: [id number] [facility] *KIM Courtney Clinical Summary Name PAMELA BRISENO Age 82 Years 1940 PCP Lobo Dorsey MD PCP Visit Date 01/26/2023 10:55:00 Additional Instructions: Scheduled Appointments?? Future Appointments ?No Future Appointments Scheduled Follow-Up Instructions ?? With: Address: When: Lobo Dorsey MD In 1 month Diagnosis Dizziness and giddiness; Unspecified visual disturbance; Anxiety disorder, unspecified Medications: Please continue your medications until treatment is completed or stopped by your provider. Discuss any questions related to medications with your provider. Medications to Continue with No Changes These medications were not printed or sent to your pharmacy Ascorbic Acid (Vitamin C 1000 mg oral tablet) 1 tab(s) Oral Daily. Next Dose: Aspirin (aspirin 81 mg oral delayed release tablet) 1 tab(s) Oral Daily. Next Dose: Cholecalciferol (Vitamin D3 2000 intl units oral tablet) 1 tab(s) Oral Daily. Next Dose: Citalopram (citalopram 40 mg oral tablet) 1 tab(s) Oral Daily. Refills: 5. Next Dose: Folic Acid Daily. Next Dose: Pyridoxine (Vitamin B-6 Tablet) Daily. Next Dose: No Longer Take the Following Medications Fexofenadine (fexofenadine 180 mg oral tablet) 1 tab(s) Oral Daily. Omeprazole (omeprazole 20 mg oral delayed release tablet) 1 tab(s) Oral Daily. Refills: 1. Allergy Info:?? Bactrim; amoxicillin Medications Given This Visit Future Orders ?Folate Level? Order Date:01/26/23?- Complete on or after?01/26/23 ?Hemoglobin A1C (Monitoring)? Order Date:01/26/23?- Complete on or after?01/26/23 ?Syphilis Testing formerly ordered as RPR? Order Date:01/26/23?- Complete on or after?01/26/23 ?Lyme Disease Ab Screen? Order Date:01/26/23?- Complete on or after?01/26/23 ?Vitamin B12 Level? Order Date:01/26/23?- Complete on or after?01/26/23 ?ASH Screen? Order Date:01/26/23?- Complete on or after?01/26/23 ?Sedimentation Rate? Order Date:01/26/23?- Complete on or after?01/26/23 ?Comprehensive Metabolic Panel? Order Date:01/26/23?- Complete on or after?01/26/23 ?Thyroid Panel? Order Date:01/26/23?- Complete on or after?01/26/23 ?CBC? Order Date:01/26/23?- Complete on or after?01/26/23 ?Direct LDL? Order Date:01/26/23?- Complete on or after?01/26/23 ?Protein Electrophoresis? Order Date:01/26/23?- Complete on or after?01/26/23 ?MRI Brain W/O Contrast? Order Date:01/26/23?- Complete on or after?01/26/23 Vital Signs Height 153 cm Weight 48.0 kg BMI 20.5 kg/m2 Blood Pressure 132 mm Hg/72 mm Hg Temperature Pulse Rate 65 bpm Respiratory Rate 02 Sat Mode of Delivery 98 %/Room air You can now view a summary of your hospital visit from the comfort of your home through a free online portal called [employer]. [employer] is a website that allows you to securely view your medical information including discharge summary, medications and follow-up visits. ??You can alsosend a secure electronic message to your doctor???s office to request appointments, renew medications or just ask a question. You can enroll at [email or web address] or register during your next office visit. Disclaimer:?? The information provided is of a general nature and is intended to be used in conjunction with the recommendations and advice of your health care practitioner. ??Every effort has been made to ensure that the information provided is accurate and complete at the time it is provided to you however, as your needs change, or, as new ??information becomes available, different or additional instructions may be required. If you have questions, please consult with your primary care provider or pharmacist, as appropriate. ??This information is not intended to serve as substitution for assessment and evaluation by a qualified health care provider. If you do not have a primary care provider, you may find a [facility] provider by calling [facility] [employer] [facility] at [phone]. For information about the plan of care including goals and instructions for your diagnosis, please see the patient education orders section of this document. Patient Education Materials?? The content of this educational material or handout may have been modified, supplemented, or adapted from its original content and format to support your individualized medical care. Patient Care team information Care Team Personnel Name: Sunita GONZALES, Lobo Lozada Position: [facility] Primary Care Physician Member Role: PCP Address: Address: [address] [place] [address]- Care Team Related Persons Name: JORGE BRISENO Address: [address] [address]
--- OUTSIDE RECORDS SUMMARY | 2024-04-30 11:03 | XMS_ITS | Continuity of Care Document ---
Author Organization [facility] [place] [facility] Address [address] [place] [address]- Care Team Providers Care Mate Ship Name Role Phone Lobo Dorsey MD Primary Care Physician [phone] Encounter [facility] Date(s): 10/24/22 - 10/31/22 [facility] Adult [address] [place] [address]- Encounter Diagnosis Esophageal reflux(Discharge Diagnosis) - 10/24/22 Major depression, recurrent, moderate(Discharge Diagnosis) - 10/24/22 Attending Physician: Not on Staff, Attending MD Allergies, Adverse Reactions, Alerts Substance Reaction [...] orderred by Dhara nieto NP 6Admin Note: [employer] [facility] MICHELLE 7Admin Note: per [...] Refills, Maintenance Start Date: 05/20/13 Status: Ordered omeprazole 20 mg oral delayed release tablet 1 tablet = 20 mg, By Mouth, Daily, # 30 tablet, 1 Refills, Maintenance, 10/31/22 16:59:00 EST, CR Tablet[id number], Partial fill upon patient request if the prescription is for a schedule II opioid drug., 153, cm, 10/24/22 15:03:00... Start Date: 10/31/22 Status: Ordered Vitamin B-6 Tablet Daily, Maintenance, [...] Clinical Service Informant Esophageal reflux Discharge Diagnosis 10/24/22 Major depression, recurrent, moderate Discharge Diagnosis 10/24/22 Vital Signs Most recent to oldest [Reference Range]: 1 Height 153 cm (10/24/22 3:03 PM) Weight 48.6 kg (10/24/22 3:03 PM) Oxygen Saturation [94-100 %] 99 % (10/24/22 3:03 PM) Pulse Rate [55-90 bpm] 60 bpm (10/24/22 3:03 PM) Body Mass Index [18.5-24.99 kg/m2] 20.76 kg/m2 (10/24/22 3:03 PM) Blood Pressure [90-138/55-84 mm Hg] 158/ 64mm Hg *H* (10/24/22 3:03 PM) Respiratory Rate [16-30 br/min] 16 br/mi n (10/24/22 3:03 PM) Temperature [96.8-100.4 DegF] 97.7 DegF (10/24/22 3:03 PM) Mode of Delivery (Oxygen) Room air (10/24/22 3:03 PM) Blood pressure sites Arm, left (10/24/22 3:03 PM) Temperature Route Oral (10/24/22 3:03 PM) Weight Obtained Via Standing scale (10/24/22 3:03 PM) Social History Social History Type Response Smoking Status Never smoker entered on: 11/18/13 Sex EKG study * Event Display: ECG 12-Lead Authored Date: Please click on pdf link to open report * Event Display: ECG 12-Lead Authored Date: Ventricular Rate: 62 BPM Atrial Rate: 62 BPM P-R Interval: 150 ms QRS Duration: 68 ms Q-T Interval: 410 ms QTC Calculation(Bazett): 416 ms P [place]: 62 degrees R [place]: 29 degrees T [place]: 60 degrees Normal sinus rhythm Normal ECG When compared with ECG of 07-DEC-2021 09:25, No significant change was found Confirmed by COLLEEN DEVINE MD ([id number]) on 10/30/2022 8:43:41 PM [place]: COLLEEN DEVINE MD Patient Care team information Care Team Personnel Name: Lobo Dorsey MD Position: S Primary Care Physician Member Role: PCP Address: Address: [address] [place] [address]- Care Team Related Persons Name: BRISENOJORGE Address: home [address] [place] [address]
--- OUTSIDE RECORDS SUMMARY | 2024-04-30 11:03 | XMS_ITS | Continuity of Care Document ---
Author Organization [facility] Kiel [facility] Silver[facility] lt Address [address] [place] [address]- Care Team Providers Care Circulating Process Inspector Name Role Phone Lobo Dorsey MD Primary Care Physician [facility]counter [facility] Date(s): 02/29/24 - 03/30/24 [facility] [place] Adult [address] [place] [address]- Allergies, Adverse Reactions, Alerts Substance Reaction Severity [...] HIGH DOSE 3Location History: [address] [place] 4Admin Note: GIVEN IN CLINIC SHAM 5Result Comment: [05/20/2013] orderred by Dhara nieto NP 6Admin Note: [facility] MICHELLE 7Admin Note: per pt rcvd elsewhere Medications amLODIPine 5 mg oral tablet 1 tablet = 5 mg, By Mouth, Daily, # 90 tablet, 0 Refills, Maintenance, 02/29/24 11:28:00 EDT, Tablet, [id number], Partial fill upon patient request [...] Primary Care Member Role: PCP Address: Address: [address] [place] [id number] Care Team Related Persons Name: JORGE BRISENO Address: home [address] [facility] [facility] [place] [address]
--- OUTSIDE RECORDS SUMMARY | 2024-04-30 11:03 | XMS_ITS | Continuity of Care Document ---
Author Organization [facility] [place] Silverio lt Address [address] [place] [address]- Care Team Providers Care Hotbed Operator Name Role Phone Lobo Dorsey MD Primary Care Physician [facility]26[facility]23 - 04/13/23 [facility] Adult [address] [place] [address]- Attending Physician: Lobo Dorsey MD Allergies, Adverse [...] orderred by Dhara nieto NP 6Admin Note: [employer] [facility] MICHELLE 7Admin Note: per pt rcvd [...] Care Member Role: PCP Address: Address: [address] [place] [address]- Care Team Related Persons Name: JORGE BRISENO Address: home [address] [place] [address]
--- OUTSIDE RECORDS SUMMARY | 2024-04-30 11:03 | XMS_ITS | Continuity of Care Document ---
Author Organization [facility] Kiel [place] Silverio lt Address [address] [place] [address]- Care Team Providers Care Keg Raiser Name Role Phone Lobo Dorsey MD Primary Care Physician [facility] Date(s): 02/06/23 - 03/08/23 [facility] Adult [address] [place] [address]- Allergies, Adverse Reactions, Alerts Substance Reaction Severity [...] orderred by Dhara nieto NP 6Admin Note: [employer] [facility] MICHELLE 7Admin Note: per pt [...] Care Physician Member Role: PCP Address: Address: [address] [place] [address]- Care Team Related Persons Name: JORGE BRISENO Address: home [address] [place] [address]
--- OUTSIDE RECORDS SUMMARY | 2024-04-30 11:03 | XMS_ITS | Continuity of Care Document ---
Author Organization [facility] Silverio lt Address [address] [place] [address]- Care Team Providers Care Cake Press Operator Helper Name Role Phone Lobo Dorsey MD Primary Care Physician [facility] 10/23/19 - 10/30/19 [facility] Adult [address] [place] [address]- [facility] Attending Physician: Not on Staff, Attending MD [...] 5Result Comment: [05/20/2013] orderred by Dhara nieto GLASS TINTER 6Admin Note: [employer] [facility] MICHELLE 7Admin Note: per pt rcvd [...] 2009 3egd 1999 negative barretts 4E2014 5constipation 6e2017 7per hearing test done with Dr. Gauthier Vital Signs Most recent to oldest [Reference Range]: 1 Height 153.5 cm (10/23/19 8:28 AM) Weight 46.9 kg (10/23/19 8:28 AM) Oxygen Saturation [94-100 %] 97 % (10/23/19 8:28 AM) Pulse Rate [55-90 bpm] 56 bpm (10/23/19 8:28 AM) Body Mass Index [18.5-24.99] 19.9 (10/23/19 8:28 AM) Blood Pressure [90-138/55-84 mm Hg] 140/ 68mm Hg *H* (10/23/19 8:28 AM) Blood pressure sites Arm, left (10/23/19 8:28 AM) Social History Social History Type Response Smoking Status Never smoker entered on: 11/18/13 Sex
--- OUTSIDE RECORDS SUMMARY | 2024-04-30 11:03 | XMS_ITS | Continuity of Care Document ---
Author Organization [facility] [place] Silverio lt Address [address] [place] [address]- Care Team Providers Care Sous Chef Kitchen Manager Name Role Phone Lobo Dorsey MD Primary Care Physician [phone] [facility](s): 11/16/20 - 12/16/20 [facility] Adult [address] [place] [address]- Allergies, Adverse Reactions, Alerts Substance Reaction Severity [...] Note: GIVEN IN CLINIC SHAM 2Location History: [place] 3Result Comment: [07/28/2015] HIGH DOSE 4Location History: [address] [place] 5Result Comment: [05/20/2013] orderred by Dhara nieto BARBER 6Admin Note: Access Information Management [facility] SALTYALEYDA 7Admin Note: per pt rcvd elsewhere Medications Carafate 1 gm oral tablet 1 Gm, 1, tablet, By Mouth, 4 times a day, # 120 tablet, Refills 11, Tot. Refills 11, Maintenance, 09/30/20 9:28:00 EST, Route to Pharmacy Electronically, [facility] #[id number], Partial fill upon patient request if the [...] 11/16/20 13:35:00 EST, Route to Pharmacy Electronically, [facility] #[id number], 153.5, cm, 09/29/20 15:00:00 EST, Height Start Date: 11/16/20 Stop Date: 02/14/21 Status: Ordered citalopram 40 mg oral tablet 40 mg, 1, tablet, By Mouth, Daily, # 90 tablet, Refills 0, Tot. Refills 0, Maintenance, 11/17/20 10:54:00 EST, Route to Pharmacy Electronically, [facility] #[id number], Partial fill upon patientrequest if the prescription is for a schedule II op... Start Date: 11/17/20 Status: Ordered Folic Acid Daily, 0 Refills, Maintenance Start Date: 05/20/13 Status: Ordered ipratropium nasal 21 mcg/inh spray 2 sprays, Nares, Both, 3 times a day, # 30 mL, 11 Refills, Maintenance, 09/29/20 16:46:00 EST, [place], [email or web address] #[id number], Partial fill upon patient request if the [...]
--- OUTSIDE RECORDS SUMMARY | 2024-04-30 11:03 | XMS_ITS | Continuity of Care Document ---
Author Organization [facility] Silverio lt Address [address] [place] [address]- Care Team Providers Care Project Management Manager Name Role Phone Lobo Dorsey MD Primary Care Physician [phone] [facility]s): 11/26/19 - 12/06/19 [facility] Adult [address] [place] [address]- [facility] Attending Physician: Admtr, Ar8 Allergies, Adverse Reactions, [...] 5Result Comment: [05/20/2013] orderred by Dhara nieto LIBERAL ARTS TEACHER 6Admin Note: [employer] [facility] MICHELLE 7Admin Note: per pt rcvd elsewhere Medications citalopram 20 mg oral tablet See Instructions, TAKE TWO TABLETS BY MOUTH ONCE DAILY, # 180 tablet, Refills 1, Tot. Refills 1, Soft Stop, 09/15/19 14:30:31 EST, Instructions Replace Required Details, Print Requisition Start Date: 09/15/19 Status: Ordered Diflucan 150 mg oral tablet 1 tablet = 150 mg, By Mouth, Once, # 1 tablet, 0 Refills, Soft Stop, 12/05/19 16:56:00 EST, [facility], 153.5, cm, 11/26/19 9:11:00 EST, Height Start Date: 12/05/19 Status: Ordered Folic Acid Daily, 0 Refills, Maintenance Start Date: 05/20/13 Status: Ordered MiraLax oral powder for reconstitution = 17 Gm, By Mouth, Daily, dissolve in water before taking, # 527 Gm, 0 Refills, Maintenance, 11/26/19 9:43:00 EST, REC Powder Start Date: 11/26/19 Status: Ordered Pepcid 20 mg oral tablet [...] 05/18/15 9:34:02 Start Date: 05/18/15 Status: Ordered Zithromax 250 mg oral tablet 1 pack/packet, By Mouth, Once, # 6 tablet, 0 Refills, Soft Stop, 11/26/19 9:42:00 EST, Tablet, [facility], 153.5, cm, 11/26/19 9:11:00 EST, Height Start Date: 11/26/19 Status: Ordered Problem List Condition Effective Dates [...]
--- OUTSIDE RECORDS SUMMARY | 2024-04-30 11:03 | XMS_ITS | Continuity of Care Document ---
Author Organization [facility] [place] Silverio lt Address [address] [place] [address]- Care Team Providers Care Drum Sander Name Role Phone Lobo Dorsey MD Primary Care Physician Encounter [facility] Date(s): 02/25/24 - 03/03/24 [facility] Adult [address] [place] [address]- Encounter Diagnosis Anxiety(Discharge Diagnosis) - 02/25/24 Recurrent major depressive episodes(Discharge Diagnosis) - 02/25/24 Benign essential hypertension(Discharge Diagnosis) - 02/25/24 Attending Physician: Lobo Dorsey MD Allergies, Adverse [...] orderred by Dhara nieto NP 6Admin Note: [employer] [facility] MICHELLE 7Admin Note: per pt rcvd [...] Effective Dates Health Status Clinical Service Informant Anxiety Discharge Diagnosis 02/25/24 Recurrent major depressive episodes Discharge Diagnosis 02/25/24 Benign essential hypertension Discharge Diagnosis 02/25/24 Vital Signs Most recent to oldest [Reference Range]: 1 2 Height 153 cm (02/25/24 2:21 PM) 153 cm (02/25/24 2:10 PM) Weight 47.0 kg (02/25/24 2:10 PM) Oxygen Saturation [94-100 %] 99 % (02/25/24 2:10 PM) Pulse Rate [55-90 bpm] 65 bpm (02/25/24 2:10 PM) Body Mass Index [18.5-24.99 kg/m2] 20.08 kg/m2 (02/25/24 2:10 PM) Blood Pressure [90-138/55-84 mm Hg] 184/ 79mm Hg *H* (02/25/24 2:21 PM) 148/76mm Hg *H* (02/25/24 2:10 PM) Mode of Delivery (Oxygen) Room air (02/25/24 2:10 PM) Blood pressure sites Arm, left (02/25/24 2:10 PM) Weight Obtained Via Standing scale (02/25/24 2:10 PM) Social History Social History Type Response Smoking Status Never (less than 100 in lifetime) entered on: 08/28/23 Sex Note * Lubna Castillo: PERFORM, SIGN, VERIFY Event Display: Patient Education/Instruction Authored Date: [id number] [facility] *KIM Courtney Clinical Summary Name PAMELA BRISENO Age 83 Years 1940 PCP [phone] Visit Date 02/25/2024 14:09:00 Additional Instructions: Scheduled Appointments?? Future Appointments ?No Future Appointments Scheduled Follow-Up Instructions ?? With: Address: When: Lobo Dorsey MD In 6 months Comments: Physical examination With: Address: When: clinical In 2 weeks Diagnosis Anxiety disorder, unspecified; Essential (primary) hypertension; Major depressive disorder, recurrent, unspecified; Diplopia; Strain of muscle and tendon of front wall of thorax, initial encounter Medications: Please continue your medications until treatment is completed or stopped by your provider. Discuss any questions related to medications with your provider. New Medications [facility], [address] [place] [id number], [phone] Amlodipine-Benazepril (Lotrel 5 mg-10 mg oral capsule) 1 capsule Oral Daily. Refills: 3. Next Dose: Medications to Continue with No Changes These medications were not printed or sent to your pharmacy Ascorbic Acid (Vitamin C 1000 mg oral tablet) 1 tab(s) Oral Daily. Next Dose: Cholecalciferol (Vitamin D3 2000 intl units oral tablet) 1 tab(s) Oral Daily. Next Dose: Citalopram (citalopram 40 mg oral tablet) 1 tab(s) Oral Daily. Refills: 3. Next Dose: Folic Acid Daily. Next Dose: Allergy Info:?? Bactrim; amoxicillin Medications Given This Visit Future Orders ?No future orders Future Orders ?Comprehensive Metabolic Panel? Order Date:02/25/24?- Complete within?CBC? Order Date:02/25/24?- Complete within?Thyroid Panel? Order Date:02/25/24?- Complete within?Direct LDL? Order Date:02/25/24?- Complete within? Vital Signs Height 153 cm Weight 47.0 kg BMI 20.08 kg/m2 Blood Pressure 184 mm Hg/79 mm Hg Temperature Pulse Rate 65 bpm Respiratory Rate 02 Sat Mode of Delivery 99 %/Room air You can now view a summary of your hospital visit from the comfort of your home through a free online portal called [employer]Manager. FitnessManager is a website that allows you to securely view your medical information including discharge summary, medications and follow-up visits. ??You can alsosend a secure electronic message to your doctor???s office to request appointments, renew medications or just ask a question. You can enroll at [email or web address] or register during your next office [...] primary care provider, you may find a [facility] provider by calling [facility] [employer] Link at [phone]. [facility], in keeping with [facility] guidance, no longer requires face masks for staff, patientsor visitors in most situations. Similar to time spent indoors at other locations, there is the chance that you were exposed to respiratory viruses during your time with us (such as flu or COVID-19).? If you develop symptoms concerning for a viral respiratory infection, please seek testing (and treatment if indicated) from your medical provider or home test kit. For information about the plan of care [...] Personnel Name: Sunita GONZALES, Lobo Lozada Position: S Physician - Primary Care Member Role: PCP Address: Address: [address] [place] [address]- Care Team Related Persons Name: JORGE BRISENO Address: home [address] [place] [address]
--- OUTSIDE RECORDS SUMMARY | 2024-04-30 11:03 | XMS_ITS | Continuity of Care Document ---
Author Organization [facility] Silverio lt Address [address] [place] [address]- Care Team Providers Care Tool Grinding Technician Name Role Phone Lobo Dorsey MD Primary Care Physician Encounter [facility] Date(s): 11/17/20 - 11/24/20 [facility] Adult [address] [place] [address]- Attending Physician: Cesar Coronel MD Allergies, Adverse Reactions, Alerts Substance Reaction [...] 5Result Comment: [05/20/2013] orderred by Dhara nieto COOPERATIVE EDUCATION DIRECTOR 6Admin Note: [place] [facility] SALTYSAPPHIRESILVANO 7Admin Note: per pt rcvd elsewhere Medications Carafate 1 gm oral tablet 1 Gm, 1, tablet, By Mouth, 4 times a day, # 120 tablet, Refills 11, Tot. Refills 11, Maintenance, 09/30/20 9:28:00 EST, Route to Pharmacy Electronically, [facility] #[id number], Partial fill upon patient request if the [...] 11/16/20 13:35:00 EST, Route to Pharmacy Electronically, [facility] #[id number], 153.5, cm, 09/29/20 15:00:00 EST, Height Start Date: 11/16/20 Stop Date: 02/14/21 Status: Ordered citalopram 40 mg oral tablet 40 mg, 1, tablet, By Mouth, Daily, # 90 tablet, Refills 0, Tot. Refills 0, Maintenance, 11/17/20 10:54:00 EST, Route to Pharmacy Electronically, [facility] #[id number], Partial fill upon patientrequest if the prescription is for a schedule II op... Start Date: 11/17/20 Status: Ordered Folic Acid Daily, 0 Refills, Maintenance Start Date: 05/20/13 Status: Ordered ipratropium nasal 21 mcg/inh spray 2 sprays, Nares, Both, 3 times a day, # 30 mL, 11 Refills, Maintenance, 09/29/20 16:46:00 EST, [place], [facility] #[id number], Partial fill upon patient request if the [...] oldest [Reference Range]: 1 Height 153.5 cm (11/17/20 8:26 AM) Social History Social History Type Response Smoking Status Never smoker entered on: 11/18/13 Sex
--- OUTSIDE RECORDS SUMMARY | 2024-04-30 11:03 | XMS_ITS | Continuity of Care Document ---
Author Organization [facility] Address [address] [place] [address]- Care Team Providers Care Facilities Administrator Name Role Phone Lobo Dorsey MD Primary Care Physician [facility] 08[facility]28[facility]23 - 09/27/23 [facility] [address] [place], [place] [address] Attending Physician: Admtr, Ar8 Admitting Physician: Admtr, Ar8 Referring Physician: Admtr, Ar8 Allergies, Adverse Reactions, Alerts [...] Manohar rded influenza virus vaccine, inactivated 08/02/10 Mnaohar rded tetanus-diphtheria toxoids (Td) 01/26/23 Given tetanus-diphtheria [...] orderred by Dhara nieto NP 6Admin Note: [employer] [facility] MICHELLE 7Admin Note: per [...] Primary Care Member Role: PCP Address: Address: [address] [place] [address]- Care Team Related Persons Name: BRISENO, JORGE Address: home [address] [place] [address]
--- OUTSIDE RECORDS SUMMARY | 2024-04-30 11:03 | XMS_ITS | Continuity of Care Document ---
Author Organization [facility] [place] Silverio lt Address [address] [place] [address]- Care Team Providers Care Rag Shredder Name Role Phone Lobo Dorsey MD Primary Care Physician [phone] [facility]s): 03/14/23 - 04/13/23 [facility] Adult [address] [place] [address]- Attending Physician: Admtr, Rocio Allergies, Adverse Reactions, Alerts Substance Reaction Severity [...] orderred by Dhara nieto NP 6Admin Note: [employer] [facility] MICHELLE 7Admin Note: per pt rcvd [...] 11/18/13 Sex EKG study * Event Display: EKG Authored Date: * Event Display: EKG Authored Date: Cardiology * Tana Carolina: PERFORM Event Display: Cardiovascular Results Scanned Authored Date: Laboratory * Event Display: Non BH Lab Results Authored Date: * Event Display: Laboratory Result Scanned Authored Date: * Event Display: Non BH Lab Results Authored Date: * Event Display: Non BH Lab Results Authored Date: * Event Display: Non BH Lab Results Authored Date: Cardiology Outpatient Note * Augustina Larson.: PERFORM Event Display: Cardiology Note Office Authored Date: [facility] Breast Views * Event Display: MM Mammogram Authored Date: * Event Display: MM Mammogram, Non- BH Authored Date: * Event Display: MM Mammogram, Non- BH Authored Date: * Event Display: MM Mammogram, Non- BH Authored Date: Radiology * Event Display: IR Special Procedures, Non-BH Authored Date: * Event Display: Non BH Radiology Results Authored Date: * Geraldine Vallejo: PERFORM Event Display: Radiology Results Scanned Authored Date: * Racheal Spring: PERFORM Event Display: Radiology Results Scanned Authored Date: Patient Care team information Care Team Personnel Name: Sunita GONZALES, Lobo Lozada Position: [facility] Physician - Primary Care Member Role: PCP Address: Address: [address] [place] [address]- Care Team Related Persons Name: JORGE BRISENO Address: home [address] [place] [address] [place] [address]
--- OUTSIDE RECORDS SUMMARY | 2024-04-30 11:03 | XMS_ITS | Continuity of Care Document ---
Author Organization [facility] [place] Silverio lt Address [address] [place] [address]- Care Team Providers Care Manager Lpn Name Role Phone Lobo Dorsey MD Primary Care Physician [facility] Date[facility]s): 03/12/23 - 04/11/23 [facility] Adult [address] [place] [address]- Allergies, Adverse Reactions, Alerts Substance Reaction Severity [...] orderred by Dhara nieto NP 6Admin Note: [facility] MICHELLE 7Admin Note: per pt rcvd [...] Primary Care Member Role: PCP Address: Address: [address] [place] [address]- Care Team Related Persons Name: JROGE BRISENO Address: home [address] [place] [address]
--- OUTSIDE RECORDS SUMMARY | 2024-04-30 11:03 | XMS_ITS | Continuity of Care Document ---
Author Organization [facility] [place] Silverio lt Address [address] [place] [address]- Care Team Providers Care Fashion Patternmaker Name Role Phone Lobo Dorsey MD Primary Care Physician [phone] Encounter [facility] Date(s): 11/29/22 - 12/06/22 [facility] Adult [address] [place] [address]- Encounter Diagnosis Esophageal reflux(Discharge Diagnosis) - 11/29/22 Attending Physician: Sujit AGUIRRE, Beverley Parr Referring Physician: Lobo Dorsey MD Allergies, Adverse Reactions, [...] orderred by Dhara nieto NP 6Admin Note: [employer] [facility] MICHELLE 7Admin Note: per pt [...] Refills, Maintenance, 10/31/22 16:59:00 EST, [place] Table[place], [facility][id number], Partial fill upon patient request if the [...] Clinical Service Informant Esophageal reflux Discharge Diagnosis 11/29/22 Vital Signs Most recent to oldest [Reference Range]: 1 Height 153 cm (11/29/22 1:57 PM) Weight 49.4 kg (11/29/22 1:57 PM) Oxygen Saturation [94-100 %] 98 % (11/29/22 1:57 PM) Pulse Rate [55-90 bpm] 67 bpm (11/29/22 1:57 PM) Body Mass Index [18.5-24.99 kg/m2] 21.1 kg/m2 (11/29/22 1:57 PM) Blood Pressure [90-138/55-84 mm Hg] 156/ 60mm Hg *H* (11/29/22 1:57 PM) Respiratory Rate [16-30 br/min] 16 br/mi n (11/29/22 1:57 PM) Temperature [96.8-100.4 DegF] 98.7 DegF (11/29/22 1:57 PM) Mode of Delivery (Oxygen) Room air (11/29/22 1:57 PM) Blood pressure sites Arm, left (11/29/22 1:57 PM) Temperature Route Oral (11/29/22 1:57 PM) Weight Obtained Via Standing scale (11/29/22 1:57 PM) Social History Social History Type Response Smoking Status Never smoker entered on: 11/18/13 Sex Note * Kay Rivera: SIGN, VERIFY, PERFORM Event Display: Patient Education/Instruction Authored Date: [id number] [facility] *BMP So [place] Courtney Clinical Summary Name PAMELA BRISENO Age 82 Years 1940 PCP Lobo Dorsey MD PCP Visit Date 11/29/2022 13:55:00 Additional Instructions: Scheduled Appointments?? Future Appointments ?*BMP??[facility] [address] ?Phone:??--?Fax:??-- ?Appt. Date:??01/26/2023?10:50 AM ?Scheduled Provider:??Troy Dorsey MDw K Follow-Up Instructions ?? Diagnosis Medications: Please continue your medications until treatment [...] tab(s) Oral Daily. Refills: 5. Next Dose: Fexofenadine (fexofenadine 180 mg oral tablet) 1 tab(s) Oral Daily. Next Dose: Folic Acid Daily. Next Dose: Omeprazole (omeprazole 20 mg oral delayed release tablet) 1 tab(s) Oral Daily. Refills: 1. Next Dose: Pyridoxine (Vitamin B-6 Tablet) Daily. Next Dose: Allergy Info:?? Bactrim; amoxicillin Medications Given This Visit Future Orders ?No future orders Vital Signs Height 153 cm Weight 49.4 kg BMI 21.1 kg/m2 Blood Pressure 156 mm Hg/60 mm Hg Temperature 98.7 DegF Pulse Rate 67 bpm Respiratory Rate 16 br/min 02 Sat Mode of Delivery 98 %/Room air You can now view a summary of your hospital visit from the comfort of your home through a free online portal called [employer]. [employer] is a website that allows you to securely view your medical information including discharge summary, medications and follow-up visits. ??You can alsosend a secure electronic message to your doctor???s office to request appointments, renew medications or just ask a question. You can enroll at [email or web address] or register during your next office visit. [...] primary care provider, you may find a [facility] provider by calling [facility] [employer] Link at [phone]. For information about the plan of care [...] Care Physician Member Role: PCP Address: Address: [address] [place] [address]- Care Team Related Persons Name: JORGE BRISENO Address: home [address] [place] [address]
--- OUTSIDE RECORDS SUMMARY | 2024-04-30 11:04 | XMS_ITS | Continuity of Care Document ---
Author Organization [facility] [place] Silverio lt Address [address] [place] [address]- Care Team Providers Care Photonic Laboratory Technician Name Role Phone Lobo Dorsey MD Primary Care Physician [phone] [place] [facility] Date(s): 09/06/21 - 10/06/21 [facility] Adult [address] [place] [address]- Allergies, Adverse Reactions, Alerts Substance Reaction Severity [...] Given Fluzone (oldterm) 07/31/12 Given FluLaval (oldterm) 11/8/11 Given FluLaval (oldterm) 6 08/03/10 Given Tetanus [...] orderred by Dhara nieto NP 6Admin Note: [employer] [facility] MICHELLE 7Admin Note: per pt rcvd elsewhere Medications Carafate 1 gm oral tablet 1 Gm, 1, tablet, By Mouth, 4 times a day, # 120 tablet, Refills 11, Tot. Refills 11, Maintenance, 09/30/20 9:28:00 EST, Route to Pharmacy Electronically, [facility] #[id number], Partial fill upon patient request if the prescription is for a sched... Start Date: 09/30/20 Status: Ordered citalopram 40 mg oral tablet 1 tablet, By Mouth, Daily, # 90 tablet, 1 Refills, [facility] #[id number], 153.5, cm, 04/14/2114:03:00 EDT, Height Start Date: 07/08/21 Status: Ordered Folic Acid Daily, 0 Refills, Maintenance Start Date: 05/20/13 Status: Ordered LORazepam 0.5 mg oral tablet 0.5 tablet = 0.25 mg, By Mouth, 3 times a day, PRN for anxiety, # 30 tablet, 0 Refills, Maintenance, 08/04/21 12:11:00 EDT, Tablet, [facility] #[id number], Partial fill upon patient request if the [...] 5 Refills, Maintenance, 04/14/21 14:31:00 EDT, Tablet, [facility] #[id number], Partial fill upon patient request if the [...]
--- OUTSIDE RECORDS SUMMARY | 2024-04-30 11:04 | XMS_ITS | Continuity of Care Document ---
Author Organization [facility] Kiel Salvador Silverio lt Address [address] [place] [address]- Care Team Providers Care Vulcanizing Machine Operator Name Role Phone Lobo Dorsey MD Primary Care Physician [phone] Encounter [facility] Date(s): 10/24/22 - 11/23/22 [facility] Adult [address] [place] [address]- Allergies, Adverse Reactions, Alerts Substance Reaction Severity [...] orderred by Dhara nieto NP 6Admin Note: [employer] [facility] MICHELLE 7Admin Note: per pt rcvd elsewhere [...] Refills, Maintenance, 10/31/22 16:59:00 EST, CR Tablet, [facility] #[id number], Partial fill upon patient request if the [...] Care Physician Member Role: PCP Address: Address: [address] [place] [address]- Care Team Related Persons Name: JORGE BRISENO Address: home [address] [place] [address]
--- OUTSIDE RECORDS SUMMARY | 2024-04-30 11:04 | XMS_ITS | Continuity of Care Document ---
Author Organization [facility] Address [address] [place] [address]- Care Team Providers Care Line Construction Supervisor Name Role Phone Lobo Dorsey MD Primary Care Physician [facility]/21 - 02/23/21 [facility] Adult [address] [place] [address]- Allergies, Adverse Reactions, Alerts Substance Reaction Severity [...] Comment: [07/28/2015] HIGH DOSE 4Location History: [address] [place] 5Result Comment: [05/20/2013] orderred by Dhara nieto DESIGN INSERTER 6Admin Note: [employer] [facility] MICHELLE 7Admin Note: per pt rcvd elsewhere Medications Carafate 1 gm oral tablet 1 Gm, 1, tablet, By Mouth, 4 times a day, # 120 tablet, Refills 11, Tot. Refills 11, Maintenance, 09/30/20 9:28:00 EST, Route to Pharmacy Electronically, [facility] #[id number], Partial fill upon patient request if the [...] tablet, 1 Refills, Maintenance, 02/11/21 7:44:00 EDT, [facility] #[id number], 153.5, cm, 11/17/20 8:26:00 EST, Height Start Date: 02/11/21 Status: Ordered Folic Acid Daily, 0 Refills, Maintenance Start Date: 05/20/13 Status: Ordered ipratropium nasal 21 mcg/inh spray 2 sprays, Nares, Both, 3 times a day, # 30 mL, 11 Refills, Maintenance, 09/29/20 16:46:00 EST, [place], [facility] #[id number], Partial fill upon patient request if the [...]
--- OUTSIDE RECORDS SUMMARY | 2024-04-30 11:04 | XMS_ITS | Continuity of Care Document ---
Author Organization [facility] Address [address] [place] [address]- Care Team Providers Care Waste Water Or Water Plant Operator Name Role Phone Lobo Dorsey MD Primary Care Physician [phone] [facility] 09/28/20 - 10/28/20 [facility] Adult [address] [place] [address]- Allergies, Adverse Reactions, Alerts Substance Reaction Severity [...] Comment: [07/28/2015] HIGH DOSE 4Location History: [address] [place] 5Result Comment: [05/20/2013] orderred by Dhara nieto CONCERT MANAGER 6Admin Note: [facility] MICHELLE 7Admin Note: per pt rcvd elsewhere Medications Carafate 1 gm oral tablet 1 Gm, 1, tablet, By Mouth, 4 times a day, # 120 tablet, Refills 11, Tot. Refills 11, Maintenance, 09/30/20 9:28:00 EST, Route to Pharmacy Electronically, [facility] #[id number], Partial fill upon patient request if the [...] mL, 11 Refills, Maintenance, 09/29/20 16:46:00 EST, [place], [facility] #[id number], Partial fill upon patient request if the [...]
--- OUTSIDE RECORDS SUMMARY | 2024-04-30 11:04 | XMS_ITS | Continuity of Care Document ---
Author Organization [facility] Address [address] [place] [address]- Care Team Providers Care Food And Beverage Analyst Name Role Phone Lobo Dorsey MD Primary Care Physician [facility]s): 11/29/22 - 12/29/22 [facility] Adult [address] [place] [address]- Attending Physician: Admtr, Ar8 Allergies, Adverse Reactions, [...] Recorde d Influenza Virus Vaccine (oldterm) 4 10/18/06 Given Zoster Vaccine Live 09/11/19 Recorded Zoster [...] orderred by Dhara nieto NP 6Admin Note: [employer] [facility] MICHELLE 7Admin Note: per pt rcvd elsewhere [...] Refills, Maintenance, 10/31/22 16:59:00 EST, [place] Tablet, [id number], Partial fill upon patient request if the [...] Date: * Event Display: EKG Authored Date: Note * Event Display: Non BH Lab Results Authored Date: * Event Display: IR Special Procedures, Non-BH Authored Date: * Event Display: Laboratory Result Scanned Authored Date: * Event Display: Non BH Lab Results Authored Date: * Event Display: Non BH Lab Results Authored Date: * Event Display: Non BH Lab Results Authored Date: * Event Display: Non BH Radiology Results Authored Date: * Geraldine Vallejo: PERFORM Event Display: Radiology Results Scanned Authored Date: * Tana Carolina: PERFORM Event Display: Cardiovascular Results Scanned Authored Date: * Racheal Spring: PERFORM Event Display: Radiology Results Scanned Authored Date: Cardiology Outpatient Note * Augustina Larson: PERFORM Event Display: Cardiology Note Office Authored Date: MG Breast Views * Event Display: MM Mammogram Authored Date: * Event Display: MM Mammogram, Non- BH Authored Date: * Event Display: MM Mammogram, Non- BH Authored Date: * Event Display: MM Mammogram, Non- BH Authored Date: Patient Care team information Care Team Personnel Name: Lobo Dorsey MD Position: S Primary Care Physician Member Role: PCP Address: Address: [address] [place] [id number] Care Team Related Persons Name: JORGE BRISENO Address: home [address] [place] [address]
--- OUTSIDE RECORDS SUMMARY | 2024-04-30 11:04 | XMS_ITS | Continuity of Care Document ---
Author Organization [facility] [facility] Address [address] [place] [address]- Care Team Providers Care Electric Transfer Operator Name Role Phone Lobo Dorsey MD Primary Care Physician [phone] [facility] 02/16/20 - 03/17/20 [facility] Adult [address] [place] [address]- [facility] Attending Physician: Admtr, Ar8 Allergies, Adverse Reactions, [...] 5Result Comment: [05/20/2013] orderred by Dhara nieto SPRING ASSEMBLER SUPERVISOR 6Admin Note: [employer] [facility] MICHELLE 7Admin Note: per pt rcvd elsewhere Medications cetirizine 10 mg oral tablet 1 tablet = 10 mg, By Mouth, Daily, # 30 tablet, 0 Refills, Maintenance, 02/16/20 14:17:00 EDT, Tablet Start Date: 02/16/20 Status: Ordered citalopram 20 mg oral tablet See Instructions, [...]
--- OUTSIDE RECORDS SUMMARY | 2024-04-30 11:04 | XMS_ITS | Continuity of Care Document ---
Author Organization [facility] Address [address] [place] [address]- Care Team Providers Care Italian Lecturer Name Role Phone Lobo Dorsey MD Primary Care Physician [facility] Date[facility]s): 01/29/23 - 02/28/23 [facility] Adult [address] [place] [address]- Allergies, Adverse Reactions, Alerts Substance Reaction Severity [...] orderred by Dhara nieto NP 6Admin Note: [facility] MICHELLE 7Admin Note: per pt [...] nl, no repeat needed with age 3colo 2000, repeat 2009 3egd 1999 negative barretts 4EGD 2014 5constipation 6egd 2017 7per hearing test done with Dr. Gauthier Social History Social History Type Response Smoking Status Never smoker entered on: 11/18/13 Sex Patient Care team information Care Team Personnel Name: Lobo Dorsey MD Position: S Primary Care Physician Member Role: PCP Address: Address: [address] [place] [address]- Care Team Related Persons Name: FINN JORGE Address: home [address] [place] [address]
--- OUTSIDE RECORDS SUMMARY | 2024-04-30 11:04 | XMS_ITS | Continuity of Care Document ---
Author Organization [facility] Address [address] [place] [address]- Care Team Providers Care Metal Expediter Name Role Phone Lobo Dorsey MD Primary Care Physician [phone] En[facility] Date(s): 08/12/20 - 08/19/20 [facility] Adult [address] [place] [address]- [facility] Encounter Diagnosis Heartburn(Discharge Diagnosis) - 08/12/20 Allergic rhinitis(Discharge Diagnosis) - 08/12/20 Low back pain(Discharge Diagnosis) - 08/12/20 Attending Physician: Not on Staff, Attending MD Referring Physician: Lobo Dorsey MD Allergies, Adverse [...] Comment: [07/28/2015] HIGH DOSE 4Location History: [address] 5Result Comment: [05/20/2013] orderred by Dhara nieto NP 6Admin Note: [employer] [facility] MICHELLE 7Admin Note: per pt [...] By Mouth, 2 times a day, # 60 tablet, 6 Refills, Maintenance, 08/12/20 14:48:00 EDT, Tablet, [facility] #[id number], 153.5, cm, 08/12/20 14:29:00 EDT, Height Start Date: 08/12/20 Status: Ordered Singulair 10 mg oral tablet 10 mg, 1, tablet, By Mouth, Daily in PM, # 90 tablet, Refills 3, Tot. Refills 3, Maintenance, 08/17/20 10:45:00 EDT, Route to Pharmacy Electronically, [id number], 153.5, cm, 08/12/20 14:29:00 EDT, Height Start Date: 08/17/20 Status: Ordered Vitamin B-6 Tablet Daily, Maintenance, [...] Dates Health Status Cl inical Service Informant Heartburn Discharge Diagnosis 08/12/20 Allergic rhinitis Discharge Diagnosis 08/12/20 Low back pain Discharge Diagnosis 08/12/20 Vital Signs Most recent to oldest [Reference Range]: 1 Height 153.5 cm (08/12/20 2:29 PM) Weight 48.7 kg (08/12/20 2:29 PM) Oxygen Saturation [94-100 %] 98 % (08/12/20 2:29 PM) Pulse Rate [55-90 bpm] 66 bpm (08/12/20 2:29 PM) Body Mass Index [18.5-24.99] 20.67 (08/12/20 2:29 PM) Blood Pressure [90-138/55-84 mm Hg] 130/ 68mm Hg (08/12/20 2:29 PM) Blood pressure sites Arm, left (08/12/20 2:29 PM) Social History Social History Type Response Smoking Status Never smoker entered on: 11/18/13 Sex
--- OUTSIDE RECORDS SUMMARY | 2024-04-30 11:04 | XMS_ITS | Continuity of Care Document ---
Author Organization [facility] Address [address] [place] [address]- Care Team Providers Care Compound Specialist Name Role Phone Lobo Dorsey MD Primary Care Physician Encounter [facility] Date(s): 11/26/19 - 12/03/19 [facility] Adult [address] [place] [address]- [facility] Encounter Diagnosis Constipation(Discharge Diagnosis) - 11/26/19 Attending Physician: Lobo Dorsey MD Allergies, Adverse [...] 3Result Comment: [07/28/2015] HIGH DOSE 4Location History: [address] [place] 5Result Comment: [05/20/2013] orderred by Dhara nieto TEACHING AIDE 6Admin Note: [employer] [facility] MICHELLE 7Admin Note: per pt rcvd [...] Dates Health Status Cl inical Service Informant Constipation Discharge Diagnosis 11/26/19 Vital Signs Most recent to oldest [Reference Range]: 1 Height 153.5 cm (11/26/19 9:11 AM) Weight 48.3 kg (11/26/19 9:11 AM) Oxygen Saturation [94-100 %] 99 % (11/26/19 9:11 AM) Pulse Rate [55-90 bpm] 58 bpm (11/26/19 9:11 AM) Body Mass Index [18.5-24.99] 20.5 (11/26/19 9:11 AM) Blood Pressure [90-138/55-84 mm Hg] 142/ 68mm Hg *H* (11/26/19 9:11 AM) Temperature [96.8-100.4 DegF] 98.3 DegF (11/26/19 9:11 AM) Mode of Delivery (Oxygen) Room air (11/26/19 9:11 AM) Blood pressure sites Arm, left (11/26/19 9:11 AM) Temperature Route Oral (11/26/19 9:11 AM) Weight Obtained Via Standing scale (11/26/19 9:11 AM) Social History Social History Type Response Smoking Status Never smoker entered on: 11/18/13 Sex
--- OUTSIDE RECORDS SUMMARY | 2024-04-30 11:04 | XMS_ITS | Continuity of Care Document ---
Author Organization [facility] Address [address] [place] [address]- Care Team Providers Care Rotary Surface Grinder Name Role Phone Lobo Dorsey MD Primary Care Physician [phone] [facility]s): 01/31/23 - 04/03/[address] [address] Attending Physician: Lobo Dorsey MD Admitting Physician: Lobo Dorsey MD Referring Physician: Lobo Dorsey MD Allergies, [...] orderred by Dhara nieto NP 6Admin Note: [employer] [facility] MICHELLE 7Admin Note: per pt rcvd [...] Personnel Name: Sunita GONZALES, Lobo Lozada Position: [facility] Physician - Primary Care Member Role: PCP Address: Address: [address] [place] [address]- Care Team Related Persons Name: JORGE BRISENO Address: home [address] [place] [address]
--- OUTSIDE RECORDS SUMMARY | 2024-04-30 11:04 | XMS_ITS | Continuity of Care Document ---
Author Organization [facility] Address [address] [place] [address]- Care Team Providers Care All Source Intelligence Name Role Phone Lobo Dorsey MD Primary Care Physician [phone] [facility] Date(s): 03/10/24 - 04/09/24 [facility] Adult [address] [place] [address]- Attending Physician: Admtr, Rocio Allergies, Adverse Reactions, [...] orderred by Dhara nieto NP 6Admin Note: [facility] MICHELLE 7Admin Note: per pt rcvd [...] 100 in lifetime) entered on: 08/28/23 Sex EKG study * Event Display: EKG Authored Date: [id number] * Event Display: EKG Authored Date: Cardiology [...] Event Display: Cardiology Note Office Authored Date: Radiology * Event Display: MRI Head, Non- BH Authored Date: * Event Display: IR Special Procedures, Non-BH Authored Date: * Event Display: Non BH Radiology Results Authored Date: * Geraldine Vallejo: PERFORM Event Display: Radiology Results Scanned Authored Date: * Racheal Spring: PERFORM Event Display: Radiology Results Scanned Authored Date: MG Breast Views * Event Display: MM Mammogram Authored Date: * Event Display: MM Mammogram, Non- BH Authored Date: * Event Display: MM Mammogram, Non- BH Authored Date: * Event Display: MM Mammogram, Non- BH Authored Date: Patient Care team information Care Team Personnel Name: Lobo Dorsey MD Position: [facility] Physician - Primary Care Member Role: PCP Address: Address: [address] [place] [address]- Care Team Related Persons Name: JORGE BRISENO Address: home [address] [place] [address]
--- OUTSIDE RECORDS SUMMARY | 2024-04-30 11:04 | XMS_ITS | Continuity of Care Document ---
Author Organization [facility] Address [address] [place] [address]- Care Team Providers Care Sprayer Leather Name Role Phone Lobo Dorsey MD Primary Care Physician [phone] Encounter [facility] Date(s): 09/05/21 - 09/12/21 [facility] Adult [address] [place] [address]- Encounter Diagnosis Anxiety(Discharge Diagnosis) - 09/05/21 Attending Physician: Cynthia Muro NP Referring Physician: Lobo Dorsey MD Allergies, Adverse [...] orderred by Dhara nieto NP 6Admin Note: [employer] MICHELLE 7Admin Note: per pt rcvd elsewhere Medications Carafate 1 gm oral tablet 1 Gm, 1, tablet, By Mouth, 4 times a day, # 120 tablet, Refills 11, Tot. Refills 11, Maintenance, 09/30/20 9:28:00 EST, Route to Pharmacy Electronically, [facility] #[id number], Partial fill upon patient request if the prescription is for a sched... Start Date: 09/30/20 Status: Ordered citalopram 40 mg oral tablet 1 tablet, By Mouth, Daily, # 90 tablet, 1 Refills, [facility] #[id number], 153.5, cm, 04/14/2114:03:00 EDT, Height Start Date: 07/08/21 Status: Ordered Folic Acid Daily, 0 Refills, Maintenance Start Date: 05/20/13 Status: Ordered LORazepam 0.5 mg oral tablet 0.5 tablet = 0.25 mg, By Mouth, 3 times a day, PRN for anxiety, # 30 tablet, 0 Refills, Maintenance, 08/04/21 12:11:00 EDT, Tablet, [facility] #[id number], Partial fill upon patient request if the [...] 5 Refills, Maintenance, 04/14/21 14:31:00 EDT, Tablet, [facility] #[id number], Partial fill upon patient request if the [...] Clini laurie Service Informant Anxiety Discharge Diagnosis 09/05/21 Vital Signs Most recent to oldest [Reference Range]: 1 Height 153.5 cm (09/05/21 1:43 PM) Weight 47.8 kg (09/05/21 1:43 PM) Oxygen Saturation [94-100 %] 99 % (09/05/21 1:43 PM) Pulse Rate [55-90 bpm] 60 bpm (09/05/21 1:43 PM) Body Mass Index [18.5-24.99] 20.29 (09/05/21 1:43 PM) Blood Pressure [90-138/55-84 mm Hg] 138/ 60mm Hg (09/05/21 1:43 PM) Temperature [96.8-100.4 DegF] 97.8 DegF (09/05/21 1:43 PM) Mode of Delivery (Oxygen) Room air (09/05/21 1:43 PM) Blood pressure sites Arm, left (09/05/21 1:43 PM) Temperature Route Oral (09/05/21 1:43 PM) Weight Obtained Via Standing scale (09/05/21 1:43 PM) Social History Social History Type Response Smoking Status Never smoker entered on: 11/18/13 Sex
--- OUTSIDE RECORDS SUMMARY | 2024-04-30 11:04 | XMS_ITS | Continuity of Care Document ---
Author Organization [facility] Address [address] [place] [address]- Care Team Providers Care Propellant Assembler Name Role Phone Lobo Dorsey MD Primary Care Physician [facility]s): 12/27/22 - 01/26/23 [facility] Adult [address] [place] [address]- Allergies, Adverse Reactions, Alerts Substance Reaction Severity [...] orderred by Dhara nieto NP 6Admin Note: [employer] [facility] MICHELLE 7Admin Note: per pt rcvd [...] Care Physician Member Role: PCP Address: Address: [address] [place] [address]- Care Team Related Persons Name: FINN JORGE Address: home [address] [place] [address]
--- OUTSIDE RECORDS SUMMARY | 2024-04-30 11:04 | XMS_ITS | Continuity of Care Document ---
Author Organization [facility] Address [address] [place] [address]- Care Team Providers Care Bucket Turner Name Role Phone Lobo Dorsey MD Primary Care Physician [phone] Encounter [facility] Date(s): 02/16/20 - 02/23/20 [facility] Adult [address] [place] [address]- [facility] Encounter Diagnosis Anxiety(Discharge Diagnosis) - 02/16/20 Esophageal reflux(Discharge Diagnosis) - 02/16/20 Rhinitis(Discharge Diagnosis) - 02/16/20 Headache(Discharge Diagnosis) - 02/16/20 Attending Physician: Lobo Dorsey MD Allergies, Adverse [...] FluLaval (oldterm) 6 08/03/10 Given Tetanus Toxoid 3/10/10 Given influ virus vac, H1N1, inactive(oldterm) 7 11/30/09 Given Influenza Inactive (IM) (oldterm) 09/02/08 Given Influenza Inactive (IM) (oldterm) 08/08/07 Given Pneumococcal Vaccine (oldterm) 10/22/04 Given Tetanus Toxoid Vaccine (oldterm) 09/21/00 Given 1Admin Note: GIVEN IN [facility] 2Location History: [facility] 3Result Comment: [07/28/2015] HIGH DOSE 4Location History: [address] [place] 5Result Comment: [05/20/2013] orderred by Dhara nieto HARDBOARD PRESS OPERATOR 6Admin Note: [employer] [facility] MICHELLE 7Admin Note: per [...] Status Clinical Service Informant Anxiety Discharge Diagnosis 02/16/20 Esophageal reflux Discharge Diagnosis 02/16/20 Rhinitis Discharge Diagnosis 02/16/20 Headache Discharge Diagnosis 02/16/20 Vital Signs Most recent to oldest [Reference Range]: 1 Height 153.5 cm (02/16/20 1:58 PM) Weight 47.9 kg (02/16/20 1:58 PM) Oxygen Saturation [94-100 %] 96 % (02/16/20 1:58 PM) Pulse Rate [55-90 bpm] 62 bpm (02/16/20 1:58 PM) Body Mass Index [18.5-24.99] 20.33 (02/16/20 1:58 PM) Blood Pressure [90-138/55-84 mm Hg] 142/ 78mm Hg *H* (02/16/20 1:58 PM) Mode of Delivery (Oxygen) Room air (02/16/20 1:58 PM) Blood pressure sites Arm, left (02/16/20 1:58 PM) Weight Obtained Via Standing scale (02/16/20 1:58 PM) Social History Social History Type Response Smoking Status Never smoker entered on: 11/18/13 Sex
--- OUTSIDE RECORDS SUMMARY | 2024-04-30 11:04 | XMS_ITS | Continuity of Care Document ---
Author Organization [facility] Address [address] [place] [address]- Care Team Providers Care Concession Worker Name Role Phone Lobo Dorsey MD Primary Care Physician [facility](s): 04/14/21 - 05/14/21 [facility] Adult [address] [place] [address]- Attending Physician: Admtr, Ar8 Allergies, Adverse Reactions, [...] orderred by Dhara nieto NP 6Admin Note: [employer] [facility] MICHELLE 7Admin Note: per pt rcvd elsewhere Medications Carafate 1 gm oral tablet 1 Gm, 1, tablet, By Mouth, 4 times a day, # 120 tablet, Refills 11, Tot. Refills 11, Maintenance, 09/30/20 9:28:00 EST, Route to Pharmacy Electronically, [facility] #[id number], Partial fill upon patient request if the prescription is for a sched... Start Date: 09/30/20 Status: Ordered citalopram 40 mg oral tablet 1 tablet, By Mouth, Daily, # 90 tablet, 1 Refills, Maintenance, 02/11/21 7:44:00 EDT, [facility] #[id number], 153.5, cm, 11/17/20 8:26:00 EST, Height Start [...] 5 Refills, Maintenance, 04/14/21 14:31:00 EDT, Tablet, [facility] #[id number], Partial fill upon patient request if the [...]
--- OUTSIDE RECORDS SUMMARY | 2024-04-30 11:04 | XMS_ITS | Continuity of Care Document ---
Author Organization [facility] Address [address] [place] [address]- Care Team Providers Care Adjunct Trainer Name Role Phone Lobo Dorsey MD Primary Care Physician [phone] [facility]s): 09/05/21 - 10/05/21 [facility] Adult [address] [place] [address]- Attending Physician: Admtr, Ar8 Allergies, Adverse Reactions, [...] orderred by Dhara nieto NP 6Admin Note: [employer] [facility] MICHELLE 7Admin Note: per pt rcvd elsewhere Medications Carafate 1 gm oral tablet 1 Gm, 1, tablet, By Mouth, 4 times a day, # 120 tablet, Refills 11, Tot. Refills 11, Maintenance, 09/30/20 9:28:00 EST, Route to Pharmacy Electronically, [facility] #[id number], Partial fill upon patient request if the prescription is for a sched... Start Date: 09/30/20 Status: Ordered citalopram 40 mg oral tablet 1 tablet, By Mouth, Daily, # 90 tablet, 1 Refills, [facility] #[id number], 153.5, cm, 04/14/2114:03:00 EDT, Height Start Date: 07/08/21 Status: Ordered Folic Acid Daily, 0 Refills, Maintenance Start Date: 05/20/13 Status: Ordered LORazepam 0.5 mg oral tablet 0.5 tablet = 0.25 mg, By Mouth, 3 times a day, PRN for anxiety, # 30 tablet, 0 Refills, Maintenance, 08/04/21 12:11:00 EDT, Tablet, [facility] #[id number], Partial fill upon patient request if the [...] 5 Refills, Maintenance, 04/14/21 14:31:00 EDT, Tablet, [facility] #[id number], Partial fill upon patient request if the [...]
--- OUTSIDE RECORDS SUMMARY | 2024-04-30 11:04 | XMS_ITS | Continuity of Care Document ---
Author Organization [facility] Address [address] [place] [address]- Care Team Providers Care Cartridge Assembling Machine Adjuster Name Role Phone Lobo Dorsey MD Primary Care Physician [phone] [facility]s): 09/06/21 - 10/06/21 [facility] Adult [address] [place] [address]- Allergies, Adverse Reactions, Alerts Substance Reaction Severity [...] orderred by Dhara nieto NP 6Admin Note: [employer] [facility] MICHELLE 7Admin Note: per pt rcvd elsewhere Medications Carafate 1 gm oral tablet 1 Gm, 1, tablet, By Mouth, 4 times a day, # 120 tablet, Refills 11, Tot. Refills 11, Maintenance, 09/30/20 9:28:00 EST, Route to Pharmacy Electronically, [email or web address] #[id number], Partial fill upon patient request if the prescription is for a sched... Start Date: 09/30/20 Status: Ordered citalopram 40 mg oral tablet 1 tablet, By Mouth, Daily, # 90 tablet, 1 Refills, [email or web address] #[id number], 153.5, cm, 04/14/2114:03:00 EDT, Height Start Date: 07/08/21 Status: Ordered Folic Acid Daily, 0 Refills, Maintenance Start Date: 05/20/13 Status: Ordered LORazepam 0.5 mg oral tablet 0.5 tablet = 0.25 mg, By Mouth, 3 times a day, PRN for anxiety, # 30 tablet, 0 Refills, Maintenance, 08/04/21 12:11:00 EDT, Tablet, [email or web address] #[id number], Partial fill upon patient request if the [...] 5 Refills, Maintenance, 04/14/21 14:31:00 EDT, Tablet, [facility] #[id number], Partial fill upon patient request if the [...]
--- OUTSIDE RECORDS SUMMARY | 2024-04-30 11:04 | XMS_ITS | Continuity of Care Document ---
Author Organization [facility] Address [address] [place] [address]- Care Team Providers Care Panelboard Operator Name Role Phone Lobo Dorsey MD Primary Care Physician Encounter [facility] Date(s): 11/15/20 - 12/15/20 [facility] Adult [address] [place] [address]- Allergies, Adverse Reactions, Alerts Substance Reaction Severity [...] 5Result Comment: [05/20/2013] orderred by Dhara nieto REGULATOR INSPECTOR 6Admin Note: [facility] SALTYALEYDA 7Admin Note: per pt rcvd elsewhere Medications Carafate 1 gm oral tablet 1 Gm, 1, tablet, By Mouth, 4 times a day, # 120 tablet, Refills 11, Tot. Refills 11, Maintenance, 09/30/20 9:28:00 EST, Route to Pharmacy Electronically, [facility] #[id number], Partial fill upon patient request if the [...] 11/16/20 13:35:00 EST, Route to Pharmacy Electronically, [facility] #[id number], 153.5, cm, 09/29/20 15:00:00 EST, Height Start Date: 11/16/20 Stop Date: 02/14/21 Status: Ordered citalopram 40 mg oral tablet 40 mg, 1, tablet, By Mouth, Daily, # 90 tablet, Refills 0, Tot. Refills 0, Maintenance, 11/17/20 10:54:00 EST, Route to Pharmacy Electronically, [facility] #[id number], Partial fill upon patientrequest if the prescription is for a schedule II op... Start Date: 11/17/20 Status: Ordered Folic Acid Daily, 0 Refills, Maintenance Start Date: 05/20/13 Status: Ordered ipratropium nasal 21 mcg/inh spray 2 sprays, Nares, Both, 3 times a day, # 30 mL, 11 Refills, Maintenance, 09/29/20 16:46:00 EST, [place] #[id number], Partial fill upon patient request if the [...]
--- OUTSIDE RECORDS SUMMARY | 2024-04-30 11:04 | XMS_ITS | Continuity of Care Document ---
Author Organization [facility] [place] [facility] [place] Address [address] [place] [address]- Care Team Providers Care Miter Sawyer Name Role Phone Lobo Dorsey MD Primary Care Physician Encounter [facility] Date(s): 11/20/22 - 11/27/22 [facility] [place] Adult [address] [place] [address]- Attending Physician: Cesar Coronel MD Allergies, Adverse [...] orderred by Dhara nieto NP 6Admin Note: [facility] MICHELLE 7Admin Note: per pt rcvd [...] Refills, Maintenance, 10/31/22 16:59:00 EST, [place], [facility] #[id number], Partial fill upon patient request if the [...] oldest [Reference Range]: 1 Height 153 cm (11/20/22 9:16 AM) Weight 49.4 kg (11/20/22 9:16 AM) Oxygen Saturation [94-100 %] 97 % (11/20/22 9:16 AM) Pulse Rate [55-90 bpm] 70 bpm (11/20/22 9:16 AM) Body Mass Index [18.5-24.99 kg/m2] 21.1 kg/m2 (11/20/22 9:16 AM) Blood Pressure [90-138/55-84 mm Hg] 134/ 84mm Hg (11/20/22 9:16 AM) Temperature [96.8-100.4 DegF] 98.2 DegF (11/20/22 9:16 AM) Mode of Delivery (Oxygen) Room air (11/20/22 9:16 AM) Blood pressure sites Arm, right (11/20/22 9:16 AM) Temperature Route Oral (11/20/22 9:16 AM) Weight Obtained Via Standing scale (11/20/22 9:16 AM) Social History Social History Type Response Smoking Status Never smoker entered on: 11/18/13 Sex Patient Care team information Care Team Personnel Name: Sunita GONZALES, Lobo Lozada Position: [facility] Primary Care Physician Member Role: PCP Address: Address: [address] [place] [id number]- Care Team Related Persons Name: JORGE BRISENO Address: home [address] [place] [address] [place] [id number]
[2024-04-30] MEDS: Lactated Ringers 1,000 ML 100 ML IVCONT (13:38)
--- NOTE | 2024-04-30 14:21 | PC.NURSE ---
patient is room 11 in pre-op. standing in doorway. approached room to offer a seat and refused. patient sitting in eye chair stated she felt awful. stating she feels disoriented, heavy in the chest. did a neuro assessment on patient and she speaking clearly. answering questions appropriately. no deficits noted. color wnl. nondiaphorectic. states you're just working yourself up. patient keeps wanting to go home. denies being diabetic. fluids infusing patnently for hydration. upset they are waiting so [facility]. kulwinder connected md srivastava to evaluate patient prior to wanting to leave. agreed to do such. 1st encounter with patient.
--- NOTE | 2024-04-30 14:30 | ECG_ITS ---
Test Reason : chest heaviness anxiety Blood Pressure : / mmHG Vent. Rate : 075 BPM Atrial Rate : 075 BPM P-R Int : 144 ms QRS Dur : 066 ms QT Int : 396 ms P-R-T Axes : 072 047 059 degrees QTc Int : 442 ms Sinus rhythm with Premature atrial complexes Low voltage QRS Borderline ECG No previous ECGs available Referred By: Talia Esteban Electronically Signed By:Kam Weiner
[2024-04-30 14:34] LABS: Glucose, Whole Blood 82 mg/dL (60-115)
--- NOTE | 2024-04-30 16:18 | HO.OPHTHAL ---
Ophthalmology Operative Note Date of Service: 04/30/24 Narrative: Diagnosis exotropia. Procedure bilateral lateral rectus recessions of [address] Villanueva. Anesthesia general. Complications none. The patient was brought to the operative room placed under general anesthesia. The eyes were prepped and draped in the usual sterile ophthalmic fashion. A lid speculum was placed in the right eye and a peritomy was created around the lateral rectus muscle. The muscle was hooked and secured with a double-armed Vicryl suture. It was disinserted from the globe and reattached to a position 7 mm behind the original insertion. Conjunctiva was closed with interrupted Vicryl sutures. An identical procedure was then performed on the left eye. The patient was then awoken from general anesthesia and discharged to postoperative recovery in good condition.
[2024-04-30] MEDS: Tetracaine HCl/PF 0.5% Oph Sol 4 ML DROPS 1 DROP EYE-BOTH (16:38)
== END 2024-04-30 17:05 | disposition home or self-care (01) ==
PROVIDERS: PCP Internal Medicine; Visit Provider Ophthalmology
PROC: (CPT 67311; principal; 2024-04-30 13:10)
DX: H53.2 Diplopia (principal); H50.10 Unspecified exotropia; I10 Essential (primary) hypertension; I67.82 Cerebral ischemia; E03.8 Other specified hypothyroidism; F33.9 Major depressive disorder, recurrent, unspecified; F41.9 Anxiety disorder, unspecified; Z79.899 Other long term (current) drug therapy; Z88.1 Allergy status to other antibiotic agents; Z98.890 Other specified postprocedural states
CPT/HCPCS: 67311; 82947; 93005; J0131; J1100; J1596; J1885; J2405; J2704; J3010

== ENCOUNTER → 2024-04-30 14:30 | Outpatient (BNV) | payer MEDICARE, SELFPAY | PROVIDERS: PCP Internal Medicine; Visit Provider Internal Medicine Cardiovascular Disease | DX: R07.89 Other chest pain (principal); R94.31 Abnormal electrocardiogram [ECG] [EKG] | CPT/HCPCS: 93010 ==